=== PATIENT | male | born 1960 | race African-American/Black ===

== ENCOUNTER 2017-12-11 12:56 | Inpatient (IN) | payer OTHER ==
[2017-12-11 13:55] VITALS: BMI 23.4
--- NOTE | 2017-12-11 16:16 | HP ---
COWS - Scale Resting Pulse: 0= [place] 80 or Below Sweatin= Chills/Flushing Restless Observation: 1= Difficult to Sit Still Pupil Size: 1= Pupils >than Normal Bone or Joint Aches: 2= Severe Diffuse Aches Runny Nose/ Eye Tearin= Runny Nose/Eyes GI Upset > 30mins: 1= Stomach Cramp Tremor Observation: 1= Tremor [place], Not Seen Yawning Observation: 1= 1-2x During Session Anxiety or Irritability: 1=Feels Anxious/Irritable Goose Flesh Skin: 3=Piloerection COWS Score: 14 Admission ROS S - [facility] Chief Complaint: WITHDRAWAL SYMPTOMS Allergies/Adverse Reactions: Allergies Allergy/AdvReac Type Severity Reaction Status Date / Time No Known Allergies Allergy Verified 12/11/17 15:10 History of Present Illness: 57 Y.O. MAN WITH A HISTORY OF OPIOID DEPENDENCE IS HERE FOR HIS FIRST ADMISSION TO DETOX. Exam Limitations: No Limitations - Ebola screening Have you traveled outside of the country in the last 21 days: No Have you had contact with anyone from an Ebola affected area: No Have you been sick,other than usual withdrawal symptoms: No Do you have a fever: No - Review of Systems Constitutional: Chills, Loss of Appetite, Unintentional Wgt. Loss EENT: reports: Tearing Respiratory: reports: Cough Cardiac: reports: No Symptoms Reported GI: reports: Abdominal cramping : reports: No Symptoms Reported Musculoskeletal: reports: Back Pain Integumentary: reports: No Symptoms Reported Neuro: reports: No Symptoms reported Endocrine: reports: No Symptoms Reported Hematology: reports: No Symptoms Reported Psychiatric: reports: Depressed Other Systems: Reviewed and Negative Patient History - Patient Medical History Hx Anemia: No (Reportedly) Hx Asthma: No Hx Chronic Obstructive Pulmonary Disease (COPD): No (Reportedly) Hx Cancer: No (Reportedly) Hx Cardiac Disorders: No Hx Congestive Heart Failure: No (Reportedly) Hx Hypertension: No Hx Hypercholesterolemia: Yes (Admits high triglycerides but refuse any medication, handles with diet) Hx Pacemaker: No (Reportedly) HX Cerebrovascular Accident: No (Reportedly) Hx Seizures: No Hx Dementia: No (Reportedly) Hx Diabetes: No Hx Gastrointestinal Disorders: No Hx Liver Disease: No (Reportedly) Hx Genitourinary Disorders: No (Reportedly) Hx Sexually Transmitted Disorders: No Hx Renal Disease (ESRD): No Hx Thyroid Disease: No (Reportedly) Hx Human Immunodeficiency Virus (HIV): Yes (Reportedly) Hx Hepatitis C: No (Reportedly) Hx Depression: Yes Hx Suicide Attempt: No Hx Bipolar Disorder: No Hx Schizophrenia: No - Patient Surgical History Past Surgical History: No Hx Neurologic Surgery: No (Reportedly) Hx Cataract Extraction: No (Reportedly) Hx Cardiac Surgery: No (Reportedly) Hx Lung Surgery: No (Reportedly) Hx Breast Surgery: No (Reportedly) Hx Breast Biopsy: No (Reportedly) Hx Abdominal Surgery: No (Reportedly) Hx Appendectomy: No (Reportedly) Hx Cholecystectomy: No Hx Genitourinary Surgery: No (Reportedly) Hx Section: No (N/A) Hx Orthopedic Surgery: No (Reportedly) Hx Hysterectomy: No (N/A) Anesthesia Reaction: No (N/A) - PPD History Previous Implant?: Yes Documented Results: Positive w/o proof PPD to be Administered?: No - Reproductive History Patient is a Female of Child Bearing Age (11 -55 yrs old): No - Smoking Cessation Smoking history: Current every day smoker Have you smoked in the past 12 months: Yes Aproximately how many cigarettes per day: 10 Cigars Per Day: 0 Hx Chewing Tobacco Use: No Initiated information on smoking cessation: Yes 'Breaking Loose' booklet given: 12/11/17 - Substance & Tx. History Hx Alcohol Use: No Hx Substance Use: Yes Substance Use Type: Cocaine, Heroin Hx Substance Use Treatment: No - Substances Abused Heroin Route: Injection Frequency: Daily Amount used: 3 BAGS Age of first use: 15 Date of Last Use: 12/11/17 Crack Route: Smoking Frequency: Daily Amount used: 3 BAGS Age of first use: 15 Date of Last Use: 12/11/17 Family Disease History - Family Disease History Family Disease History: Diabetes: Sister Admission Physical Exam S - Vital Signs Vital Signs: Vital Signs - 24 hr 12/11/17 13:53 Temperature 96.9 F L Pulse Rate 79 Respiratory 18 Rate Blood Pressure 149/56 - Physical General Appearance: Yes: Irritable, Anxious HEENTM: Yes: Hearing grossly Normal, Normocephalic Respiratory: Yes: Chest Non-Tender, Lungs Clear, Normal Breath Sounds Neck: Yes: No masses,lesions,Nodules, Trachea in good position Breast: Yes: Breast Exam Deferred Cardiology: Yes: Regular Rhythm, Regular Rate Abdominal: Yes: Normal Bowel Sounds, Non Tender, Flat Genitourinary: Yes: Other (HESISTANCY) Back: Yes: Normal Inspection Musculoskeletal: Yes: Back pain Extremities: Yes: Normal Inspection, Normal Range of Motion 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 Pt states he will do immunization, EKC, CXR on next visit. Refuse at [facility] time Cleared for Admission [facility] - Detox or Rehab [facility] Level of Care: Medically Managed Detox Regimen/Protocol: Methadone [facility] Breath Alcohol Content Breath Alcohol Content: 0 Urine Drug Screen - Results Drug Screen Negative: No Urine Drug Screen Results: YANA-Cocaine, OPI-Opiates
[2017-12-11] MEDS ORDERED: guaiFENesin/D-METHORPHAN HB 10 ML UNIT-DOSE CUPS PO PRN (16:20)
[2017-12-11] MEDS ORDERED: ACETAMINOPHEN 325 MG TABLET (FP) PO PRN (16:20)
[2017-12-11] MEDS ORDERED: MAGNESIUM HYDROX 2400MG/30ML ORAL SUSPENSION 30 ML CUP PO PRN (16:20)
[2017-12-11] MEDS ORDERED: IBUPROFEN 400 MG TABLET (FP) PO PRN (16:20)
[2017-12-11] MEDS ORDERED: LOPERAMIDE HCL 2 MG CAPSULE PO PRN (16:20)
[2017-12-11] MEDS ORDERED: P-EPHED 60MG/TRIPROLIDI 2.5MG TABLET PO PRN (16:20)
[2017-12-11] MEDS ORDERED: MAGNESIUM CITRATE 300 ML BOTTLE PO PRN (17:01)
[2017-12-11] MEDS ORDERED: MENTHOL/PHENOL 1 EACH UD MM PRN (17:04)
[2017-12-11] MEDS ORDERED: METHADONE HCL 10 MG TABLET (FOR DETOX USE ONLY) PO ONE ×2 (17:15→23:00)
[2017-12-11] MEDS: diazePAM 5 MG TABLET PO PRN (17:20)
[2017-12-11 21:59] LABS: URINE APPEARANCE CLEAR; URINE BILIRUBIN NEGATIVE (<2.0 mg/dL); URINE BLOOD NEGATIVE (NEGATIVE); URINE COLOR YELLOW; URINE GLUCOSE (UA) NEGATIVE (NEGATIVE); URINE KETONE NEGATIVE (NEGATIVE); URINE LEUK ESTERASE NEGATIVE (NEGATIVE); URINE NITRITE NEGATIVE (NEGATIVE); URINE PROTEIN NEGATIVE (NEGATIVE); URINE UROBILINOGEN NEGATIVE mg/dL (0.2-1.0)
[2017-12-11] MEDS ORDERED: MELATONIN 5 MG TABLETS PO PRN (22:00)
[2017-12-11] MEDS: THIAMINE HCL 100 MG TABLET (FP) PO SCH (22:58)
[2017-12-12] MEDS ORDERED: METHADONE HCL 10 MG TABLET (FOR DETOX USE ONLY) PO ONE (10:00)
--- NOTE | 2017-12-12 10:02 | EKG ---
Test Reason : Blood Pressure : / mmHG Vent. Rate : 068 BPM Atrial Rate : 068 BPM P-R Int : 178 ms QRS Dur : 088 ms QT Int : 368 ms P-R-T Axes : 067 042 028 degrees QTc Int : 391 ms NORMAL SINUS RHYTHM VOLTAGE CRITERIA FOR LEFT VENTRICULAR HYPERTROPHY NONSPECIFIC ST ABNORMALITY NO PREVIOUS ECGS AVAILABLE Confirmed by MIKE HANSEN MD ([id number]) on 12/12/2017 10:02:10 AM Referred By: Confirmed By:MIKE HANSEN MD
[2017-12-12] MEDS: RALTEGRAVIR POTASSIUM 400 MG TAB PO SCH (10:21)
[2017-12-12] MEDS: ATAZANAVIR SO4 300 MG CAPSULE PO SCH (10:21)
[2017-12-12] MEDS: RITONAVIR 100 MG TABLET PO SCH (10:21)
[2017-12-12] MEDS: EMTRICITABINE 200MG/TENOFOVIR 300MG PO SCH (10:21)
[2017-12-12] MEDS: PRENATAL VITAMINS W/ FOLIC ACID TABLET (FP) PO SCH (10:21)
[2017-12-12] MEDS: diazePAM 5 MG TABLET PO PRN ×3 (10:21→22:10)
[2017-12-12 10:36] LABS: HEMATOCRIT 41.6 % (35.4-49); HEMOGLOBIN 13.8 GM/dL (11.7-16.9); MCH 30.6 pg (25.7-33.7); MCHC 33.3 g/dl (32.0-35.9); MEAN PLT VOLUME 10.8 fl (7.5-11.1); PLATELET COUNT 217 K/MM3 (134-434); RBC 4.52 M/mm3 (4.00-5.60); RDW 13.8 % (11.9-15.9); WHITE BLOOD COUNT 6.7 K/mm3 (4.0-10.0)
[2017-12-12 10:53] LABS: ALBUMIN 2.9 g/dl (3.4-5.0); ANION GAP 4 (8-16); BLOOD UREA NITROGEN 10 mg/dL (7-18); CALCIUM 8.7 mg/dL (8.5-10.1); CHLORIDE 104 mmol/L (98-107); CO2 30 mmol/L (21-32); GLUCOSE,RANDOM 89 mg/dL (74-106); POTASSIUM 4.4 mmol/L (3.5-5.1); SODIUM 138 mmol/L (136-145)
[2017-12-12 10:56] LABS: ALK PHOS 103 U/L (45-117); BILIRUBIN,TOTAL 0.3 mg/dL (0.2-1.0); SGOT/AST 20 U/L (15-37); SGPT/ALT 31 U/L (12-78); TOT PROT 6.6 g/dl (6.4-8.2)
--- NOTE | 2017-12-12 11:32 | PN ---
BHS COWS - Scale Resting Pulse: 0= [place] 80 or Below Sweatin= Chills/Flushing Restless Observation: 3= Extraneous Movement Pupil Size: 0= Normal to Room Light Bone or Joint Aches: 4=Acute Joint/Muscle Pain Runny Nose/ Eye Tearin= Nasal Congestion GI Upset > 30mins: 0= None Tremor Observation of Outstretched Hands: 1= Tremor [place], Not Seen Yawning Observation: 2= >3x During Session Anxiety or Irritability: 2=Irritable/Anxious Goose Flesh Skin: 0=Smooth Skin COWS Score: 14 BHS Progress Note (SOAP) Subjective: ANXIETY/GUARDED,IRRITABILITY,RESTLESSNESS, IN INTERMITTENT SLEEP Objective: 12/12/17 11:31 Vital Signs Temperature 96.4 F L 12/12/17 09:37 Pulse Rate 70 12/12/17 09:37 Respiratory Rate 18 12/12/17 09:37 Blood Pressure 146/84 12/12/17 09:37 O2 Sat by Pulse Oximetry (%) Laboratory Last Values WBC 6.7 K/mm3 (4.0-10.0) 12/12/17 07:00 RBC 4.52 M/mm3 (4.00-5.60) 12/12/17 07:00 Hgb 13.8 GM/dL (11.7-16.9) 12/12/17 07:00 Hct 41.6 % (35.4-49) 12/12/17 07:00 MCV 92.0 fl (80-96) 12/12/17 07:00 MCH 30.6 pg (25.7-33.7) 12/12/17 07:00 MCHC 33.3 g/dl (32.0-35.9) 12/12/17 07:00 RDW 13.8 % (11.9-15.9) 12/12/17 07:00 Plt Count 217 K/MM3 (134-434) 12/12/17 07:00 MPV 10.8 fl (7.5-11.1) 12/12/17 07:00 Sodium 138 mmol/L (136-145) 12/12/17 07:00 Potassium 4.4 mmol/L (3.5-5.1) 12/12/17 07:00 Chloride 104 mmol/L (98-107) 12/12/17 07:00 Carbon Dioxide 30 mmol/L (21-32) 12/12/17 07:00 Anion Gap 4 (8-16) L 12/12/17 07:00 BUN 10 mg/dL (7-18) 12/12/17 07:00 Creatinine 1.0 mg/dL (0.7-1.3) D 12/12/17 07:00 Creat Clearance w eGFR > 60 (>60) 12/12/17 07:00 Random Glucose 89 mg/dL (74-106) D 12/12/17 07:00 Calcium 8.7 mg/dL (8.5-10.1) 12/12/17 07:00 Total Bilirubin 0.3 mg/dL (0.2-1.0) D 12/12/17 07:00 AST 20 U/L (15-37) 12/12/17 07:00 ALT 31 U/L (12-78) 12/12/17 07:00 Alkaline Phosphatase 103 U/L (45-117) 12/12/17 07:00 Total Protein 6.6 g/dl (6.4-8.2) 12/12/17 07:00 Albumin 2.9 g/dl (3.4-5.0) L D 12/12/17 07:00 Urine Color Yellow 12/11/17 21:32 Urine Appearance Clear 12/11/17 21:32 Urine pH 5.0 (5.0-8.0) D 12/11/17 21:32 Ur Specific [place] 1.024 (1.001-1.035) 12/11/17 21:32 Urine Protein Negative (NEGATIVE) 12/11/17 21:32 Urine Glucose (UA) Negative (NEGATIVE) 12/11/17 21:32 Urine Ketones Negative (NEGATIVE) 12/11/17 21: Urine Blood Negative (NEGATIVE) 12/11/17 21: Urine Nitrite Negative (NEGATIVE) 12/11/17 21: Urine Bilirubin Negative (<2.0 mg/dL) 12/11/17 21: Urine Urobilinogen Negative mg/dL (0.2-1.0) 12/11/17 21:32 Ur Leukocyte Esterase Negative (NEGATIVE) 12/11/17 21:32 RPR Titer Nonreactive (NONREACTIVE) 12/12/17 07:00 Assessment: 12/12/17 11:32 WITHDRAWAL SX Plan: CONTINUE DETOX
[2017-12-12] MEDS ORDERED: FLU VACCINE QUAD 60 MCG/0.5 ML (MDV 17-18) IM ONE (12:09)
--- NOTE | 2017-12-12 15:14 | CONSULT ---
[facility] Psychiatric Consult - Data Date of interview: 12/12/17 Admission source: [facility] Identifying data: Patient is approached on [employer] at bedside for psychiatric interview.Mr Edwards refused.Discussed with nursing staff.
[2017-12-12] MEDS: THIAMINE HCL 100 MG TABLET (FP) PO SCH (22:09)
[2017-12-13] MEDS: hydrOXYzine PAMOATE 50 MG CAPSULE (FP) PO PRN (00:44)
[2017-12-13] MEDS: diazePAM 5 MG TABLET PO PRN ×5 (02:24→22:19)
[2017-12-13] MEDS ORDERED: METHADONE HCL 5 MG TABLET (FOR DETOX USE ONLY) PO ONE (10:00)
[2017-12-13] MEDS: RALTEGRAVIR POTASSIUM 400 MG TAB PO SCH (10:12)
[2017-12-13] MEDS: PRENATAL VITAMINS W/ FOLIC ACID TABLET (FP) PO SCH (10:12)
[2017-12-13] MEDS: EMTRICITABINE 200MG/TENOFOVIR 300MG PO SCH (10:12)
[2017-12-13] MEDS: ATAZANAVIR SO4 300 MG CAPSULE PO SCH (10:12)
[2017-12-13] MEDS: RITONAVIR 100 MG TABLET PO SCH (10:13)
--- NOTE | 2017-12-13 15:39 | PN ---
BHS COWS - Scale Resting Pulse: 1= [place] 81-100 Sweatin= Chills/Flushing Restless Observation: 1= Difficult to Sit Still Pupil Size: 0= Normal to Room Light Bone or Joint Aches: 0= None Runny Nose/ Eye Tearin= Nasal Congestion GI Upset > 30mins: 0= None Tremor Observation of Outstretched Hands: 2= Slight Tremor Visible Yawning Observation: 1= 1-2x During Session Anxiety or Irritability: 2=Irritable/Anxious Goose Flesh Skin: 3=Piloerection COWS Score: 12 BHS Progress Note (SOAP) Subjective: Tremors, Fatigue, Anxious, Interrupted Sleep. Objective: PATIENT A & O X 2 (UNCERTAIN ABOUT CURRENT DAY / DATE). PATIENT OBSERVED AMBULATING ON UNIT. NO ACUTE DISTRESS. 12/13/17 15:37 Vital Signs Temperature 97.1 F L 12/13/17 13:55 Pulse Rate 87 12/13/17 13:55 Respiratory Rate 18 12/13/17 13:55 Blood Pressure 126/70 12/13/17 13:55 O2 Sat by Pulse Oximetry (%) Laboratory Tests 12/11/17 12/12/17 12/12/17 21:32 07:00 07:00 WBC 6.7 RBC 4.52 Hgb 13.8 Hct 41.6 MCV 92.0 MCH 30.6 MCHC 33.3 RDW 13.8 Plt Count 217 MPV 10.8 Sodium 138 Potassium 4.4 Chloride 104 Carbon Dioxide 30 Anion Gap 4 L BUN 10 Creatinine 1.0 D Creat Clearance w eGFR > 60 Random Glucose 89 D Calcium 8.7 Total Bilirubin 0.3 D AST 20 ALT 31 Alkaline Phosphatase 103 Total Protein 6.6 Albumin 2.9 L D Urine Color Yellow Urine Appearance Clear Urine pH 5.0 D Ur Specific [place] 1.024 Urine Protein Negative Urine Glucose (UA) Negative Urine Ketones Negative Urine Blood Negative Urine Nitrite Negative Urine Bilirubin Negative Urine Urobilinogen Negative Ur Leukocyte Esterase Negative RPR Titer 12/12/17 07:00 WBC RBC Hgb Hct MCV MCH MCHC RDW Plt Count MPV Sodium Potassium Chloride Carbon Dioxide Anion Gap BUN Creatinine Creat Clearance w eGFR Random Glucose Calcium Total Bilirubin AST ALT Alkaline Phosphatase Total Protein Albumin Urine Color Urine Appearance Urine pH Ur Specific [place] Urine Protein Urine Glucose (UA) Urine Ketones Urine Blood Urine Nitrite Urine Bilirubin Urine Urobilinogen Ur Leukocyte Esterase RPR Titer Nonreactive LABS NOTED. Assessment: 12/13/17 15:38 WITHDRAWAL SYMPTOMS. Plan: CONTINUE DETOX.
[2017-12-13] MEDS: THIAMINE HCL 100 MG TABLET (FP) PO SCH (22:19)
[2017-12-14] MEDS: diazePAM 5 MG TABLET PO PRN ×4 (02:15→14:44)
[2017-12-14] MEDS ORDERED: METHADONE HCL 5 MG TABLET (FOR DETOX USE ONLY) PO ONE (10:00)
[2017-12-14] MEDS: PRENATAL VITAMINS W/ FOLIC ACID TABLET (FP) PO SCH (10:10)
[2017-12-14] MEDS: ATAZANAVIR SO4 300 MG CAPSULE PO SCH (10:10)
[2017-12-14] MEDS: RALTEGRAVIR POTASSIUM 400 MG TAB PO SCH (10:11)
[2017-12-14] MEDS: RITONAVIR 100 MG TABLET PO SCH (10:12)
[2017-12-14] MEDS: EMTRICITABINE 200MG/TENOFOVIR 300MG PO SCH (10:13)
[2017-12-14] MEDS ORDERED: cloNIDine HCL 0.1 MG TABLET PO PRN (15:59)
--- NOTE | 2017-12-14 15:59 | PN ---
BHS Progress Note (SOAP) Subjective: Patient refused to speak to staff writer Objective: 12/14/17 15:56 Last Vital Signs Temp Pulse Resp BP Pulse Ox 96.6 F L 84 18 158/81 12/14/17 14:20 12/14/17 14:20 12/14/17 14:20 12/14/17 14:20 Elevated b/p noted Laboratory Tests 12/11/17 12/12/17 12/12/17 21:32 07:00 07:00 WBC 6.7 RBC 4.52 Hgb 13.8 Hct 41.6 MCV 92.0 MCH 30.6 MCHC 33.3 RDW 13.8 Plt Count 217 MPV 10.8 Sodium 138 Potassium 4.4 Chloride 104 Carbon Dioxide 30 Anion Gap 4 L BUN 10 Creatinine 1.0 D Creat Clearance w eGFR > 60 Random Glucose 89 D Calcium 8.7 Total Bilirubin 0.3 D AST 20 ALT 31 Alkaline Phosphatase 103 Total Protein 6.6 Albumin 2.9 L D Urine Color Yellow Urine Appearance Clear Urine pH 5.0 D Ur Specific [place] 1.024 Urine Protein Negative Urine Glucose (UA) Negative Urine Ketones Negative Urine Blood Negative Urine Nitrite Negative Urine Bilirubin Negative Urine Urobilinogen Negative Ur Leukocyte Esterase Negative RPR Titer 12/12/17 07:00 WBC RBC Hgb Hct MCV MCH MCHC RDW Plt Count MPV Sodium Potassium Chloride Carbon Dioxide Anion Gap BUN Creatinine Creat Clearance w eGFR Random Glucose Calcium Total Bilirubin AST ALT Alkaline Phosphatase Total Protein Albumin Urine Color Urine Appearance Urine pH Ur Specific [place] Urine Protein Urine Glucose (UA) Urine Ketones Urine Blood Urine Nitrite Urine Bilirubin Urine Urobilinogen Ur Leukocyte Esterase RPR Titer Nonreactive Labs reviewed Assessment: 12/14/17 15:56 Withdrawal symptoms Noted with elevated b/p Plan: Continue detox Encouraged PO hydration (water) Elevated b/p: clonidine 0.1mg PO q8hr prn
[2017-12-14] MEDS: hydrOXYzine PAMOATE 50 MG CAPSULE (FP) PO PRN (18:50)
[2017-12-14] MEDS: THIAMINE HCL 100 MG TABLET (FP) PO SCH (22:38)
[2017-12-15 09:15] VITALS: BP 122/88; PULSE 92; TEMP 99.1
[2017-12-15] MEDS ORDERED: METHADONE HCL 10 MG TABLET (FOR DETOX USE ONLY) PO ONE (10:00)
[2017-12-15] MEDS: RITONAVIR 100 MG TABLET PO SCH (10:07)
[2017-12-15] MEDS: RALTEGRAVIR POTASSIUM 400 MG TAB PO SCH (10:07)
[2017-12-15] MEDS: PRENATAL VITAMINS W/ FOLIC ACID TABLET (FP) PO SCH (10:07)
[2017-12-15] MEDS: EMTRICITABINE 200MG/TENOFOVIR 300MG PO SCH (10:07)
[2017-12-15] MEDS: ATAZANAVIR SO4 300 MG CAPSULE PO SCH (10:08)
--- NOTE | 2017-12-15 10:38 | PN ---
BHS Progress Note (SOAP) Subjective: "little diarrhea" sweats shakes Objective: 12/15/17 10:37 A & O x 3 Not in acute distress In bed Vital Signs Temperature 99.1 F 12/15/17 09:14 Pulse Rate 92 H 12/15/17 09:14 Respiratory Rate 18 12/15/17 09:14 Blood Pressure 122/88 12/15/17 09:14 O2 Sat by Pulse Oximetry (%) Assessment: 12/15/17 10:38 withdrawal sx Plan: continue detox
--- NOTE | 2017-12-15 11:40 | DS ---
[facility] Detox Discharge Summary Admission Date: 12/11/17 Discharge Date: 12/15/17 - History Present History: Opioid Dependence Additional Comments: Pt insisting on leaving, he states "I am just tired and want to go" When trying to encourage him to stay to complete pt stated you are not going to be able to convince me to stay, I just need to leave" Pt A & O x 3, gait steady, not in acute distress. Pertinent Past History: HIV chronic back pain PPD Positive - Physical Exam Results Vital Signs: Vital Signs Temperature 99.1 F 12/15/17 09:14 Pulse Rate 92 H 12/15/17 09:14 Respiratory Rate 18 12/15/17 09:14 Blood Pressure 122/88 12/15/17 09:14 O2 Sat by Pulse Oximetry (%) Pertinent Admission Physical Exam Findings: withdrawal sx - Medication Discharge Medications: Ambulatory Orders Multivit-Min/Iron Fum/Folic AC [Qzcte-Fdaztjy-Apvfthpp Tablet] 1 each PO DAILY # 30 tablet 06/12/17 Vit D3/Folic Acid/B2/B6/B12 [Folgard Tablet] 1 each PO DAILY #30 tablet Atazanavir [Reyataz -] 300 mg PO DAILY #30 capsule 07/23/17 Emtricitabine/Tenofovir (Tdf) [Truvada 200 mg-300 mg Tablet] 1 each PO DAILY # 30 tablet 07/23/17 Raltegravir [Isentress -] 400 mg PO DAILY #30 tab 07/23/17 - Diagnosis (1) Opioid dependence with intoxication, uncomplicated Current Visit: Yes Status: Acute (2) Cocaine dependence, uncomplicated Current Visit: Yes Status: Chronic (3) Nicotine dependence Current Visit: Yes Status: Chronic Qualifiers: Nicotine product type: cigarettes Substance use status: in withdrawal Qualified Code(s): F17.213 - Nicotine dependence, cigarettes, with withdrawal (4) HIV (human immunodeficiency virus infection) Current Visit: Yes Status: Chronic (5) History of chronic back pain Current Visit: Yes Status: Chronic - AMA Did Patient Leave Against Medical Advice: Yes
[2017-12-16] MEDS ORDERED: METHADONE HCL 5 MG TABLET (FOR DETOX USE ONLY) PO ONE (06:00)
== END 2017-12-15 10:47 | disposition left against medical advice (07) | DRG 770 ==
LOC: YASAS 12:56 → Y3N 15:24
PROVIDERS: ADMIT Internal Medicine; ATTEND Internal Medicine
PROC: HZ2ZZZZ Detoxification Services for Substance Abuse Treatment (ICD-10-PCS; principal; 2017-12-11)
DX: F11.23 Opioid dependence with withdrawal (principal); F14.20 Cocaine dependence, uncomplicated; F17.210 Nicotine dependence, cigarettes, uncomplicated; E78.5 Hyperlipidemia, unspecified; M54.5 Low back pain; G89.29 Other chronic pain; R76.11 Nonspecific reaction to tuberculin skin test without active tuberculosis; Z21 Asymptomatic human immunodeficiency virus [HIV] infection status
CPT/HCPCS: 36415; 71046-TC-FY; 80053; 81003; 85027; 86593; 93005; 93010

== ENCOUNTER 2018-11-04 13:39 | Inpatient (IN) | payer OTHER ==
[2018-11-04 15:06] VITALS: BMI 23.4
--- NOTE | 2018-11-04 18:10 | HP ---
COWS - Scale Resting Pulse: 1= [place] 81-100 Sweatin= Chills/Flushing Restless Observation: 1= Difficult to Sit Still Pupil Size: 0= Normal to Room Light Bone or Joint Aches: 1= Mild Discomfort Runny Nose/ Eye Tearin= Runny Nose/Eyes GI Upset > 30mins: 2= Nausea/Diarrhea Tremor Observation: 1= Tremor [place], Not Seen Yawning Observation: 2= >3x During Session Anxiety or Irritability: 2=Irritable/Anxious Goose Flesh Skin: 0=Smooth Skin COWS Score: 13 CIWA Score - Admission Criteria [facility] Guidelines: Admission for Medically Managed Detox: Requires at least one of the followin. CIWA greater than 12 2. Seizures within the past 24 hours 3. Delirium tremens within the past 24 hours 4. Hallucinations within the past 24 hours 5. Acute intervention needed for co occurring medical disorder 6. Acute intervention needed for co occurring psychiatric disorder 7. Severe withdrawal that cannot be handled at a lower level of care (continued vomiting, continued diarrhea, abnormal vital signs) requiring intravenous medication and/or fluids 8. Admission ROS [facility] - [facility] Chief Complaint: " I need help" Allergies/Adverse Reactions: Allergies Allergy/AdvReac Type Severity Reaction Status Date / Time No Known Allergies Allergy Verified 11/04/18 18:21 History of Present Illness: 58 yo male, currently homeless, with heroin (IV, crack and nicotine dependence is here seeking detox. Last detox [facility] November 2017, reports relapse soon after. PMHX : HIV, HDL. Psych: Depression. Denies suicidal / homicidal ideation. Denies hx of suicide attempt. Denies hx seizures. Reports hx of overdose x 1 two months ago. Exam Limitations: No Limitations - Ebola screening Have you traveled outside of the country in the last 21 days: No Have you had contact with anyone from an Ebola affected area: No Have you been sick,other than usual withdrawal symptoms: No Do you have a fever: No - Review of Systems Constitutional: Chills, Loss of Appetite, Changes in sleep, Unintentional Wgt. Loss (10 lbs) EENT: reports: Nose Congestion Respiratory: reports: No Symptoms reported Cardiac: reports: No Symptoms Reported GI: reports: No Symptoms Reported, Nausea, Poor Appetite, Poor Fluid Intake : reports: No Symptoms Reported Musculoskeletal: reports: Joint Pain Integumentary: reports: No Symptoms Reported Neuro: reports: Headache Endocrine: reports: No Symptoms Reported Hematology: reports: See HPI Psychiatric: reports: Orientated x3, Depressed Other Systems: Reviewed and Negative Patient History - Patient Medical History Hx Anemia: No (Reportedly) Hx Asthma: No Hx Chronic Obstructive Pulmonary Disease (COPD): No (Reportedly) Hx Cancer: No (Reportedly) Hx Cardiac Disorders: No Hx Congestive Heart Failure: No (Reportedly) Hx Hypertension: No Hx Hypercholesterolemia: Yes (Admits high triglycerides but refuse any medication, handles with diet) Hx Pacemaker: No (Reportedly) HX Cerebrovascular Accident: No (Reportedly) Hx Seizures: No Hx Dementia: No (Reportedly) Hx Diabetes: No Hx Gastrointestinal Disorders: No Hx Liver Disease: No (Reportedly) Hx Genitourinary Disorders: No (Reportedly) Hx Sexually Transmitted Disorders: No Hx Renal Disease (ESRD): No Hx Thyroid Disease: No (Reportedly) Hx Human Immunodeficiency Virus (HIV): Yes (Reportedly) Hx Hepatitis C: No (Reportedly) Hx Depression: Yes Hx Suicide Attempt: No Hx Bipolar Disorder: No Hx Schizophrenia: No - Patient Surgical History Past Surgical History: No Hx Neurologic Surgery: No (Reportedly) Hx Cataract Extraction: No (Reportedly) Hx Cardiac Surgery: No (Reportedly) Hx Lung Surgery: No (Reportedly) Hx Breast Surgery: No (Reportedly) Hx Breast Biopsy: No (Reportedly) Hx Abdominal Surgery: No (Reportedly) Hx Appendectomy: No (Reportedly) Hx Cholecystectomy: No Hx Genitourinary Surgery: No (Reportedly) Hx Section: No (N/A) Hx Orthopedic Surgery: No (Reportedly) Hx Hysterectomy: No (N/A) Anesthesia Reaction: No (N/A) - PPD History Previous Implant?: No (NEG Chest X-ray 11/2017) PPD to be Administered?: No - Smoking Cessation Smoking history: Current every day smoker Have you smoked in the past 12 months: Yes Aproximately how many cigarettes per day: 10 Cigars Per Day: 0 Hx Chewing Tobacco Use: No Initiated information on smoking cessation: Yes 'Breaking Loose' booklet given: 11/04/18 - Substance & Tx. History Hx Alcohol Use: Yes Hx Substance Use: Yes Substance Use Type: Alcohol, Cocaine, Heroin Hx Substance Use Treatment: Yes (Last detox [facility] November 2017) - Substances Abused heroin Route: Injection Frequency: Daily Amount used: 7 -8 Age of first use: 17 Date of Last Use: 11/04/18 Crack Route: Smoking Frequency: Daily Amount used: 7 -8 Age of first use: 20 Date of Last Use: 11/04/18 Family Disease History - Family Disease History Family Disease History: Diabetes: Sister Admission Physical Exam [facility] - Vital Signs Vital Signs: Vital Signs - 24 hr 11/04/18 15:04 Temperature 96.2 F L Pulse Rate 87 Respiratory 18 Rate Blood Pressure 110/61 - Physical General Appearance: Yes: Disheveled, Thin, Anxious HEENTM: Yes: EOMI, Hearing grossly Normal, Normal ENT Inspection, Normocephalic , Normal Voice, LUIS ANGEL, Pharynx Normal, Tm's normal Respiratory: Yes: Chest Non-Tender, Lungs Clear, Normal Breath Sounds, No Respiratory Distress, No Accessory Muscle Use Neck: Yes: Within Normal Limits Breast: Yes: Breast Exam Deferred, Surgical Scar Cardiology: Yes: Regular Rhythm Abdominal: Yes: Normal Bowel Sounds, Non Tender, Flat, Soft Genitourinary: Yes: Within Normal Limits Back: Yes: Normal Inspection Musculoskeletal: Yes: full range of Motion, Gait Steady, Pelvis Stable, Back pain Extremities: Yes: Normal Capillary Refill, Normal Inspection, Normal Range of Motion, Non-Tender Neurological: Yes: consulting senior practice director II-XII NML intact, Fully Oriented, Alert, Motor Strength 5/5 Integumentary: Yes: Normal Color, Warm, Moist, Track Huang (bilateral forearms, no infection present) - Diagnostic (1) Opioid dependence with withdrawal Current Visit: Yes Status: Acute (2) Cocaine dependence, uncomplicated Current Visit: Yes Status: Chronic (3) HIV (human immunodeficiency virus infection) Current Visit: Yes Status: Chronic (4) Nicotine dependence Current Visit: Yes Status: Chronic Qualifiers: Nicotine product type: cigarettes Substance use status: in withdrawal Qualified Code(s): F17.213 - Nicotine dependence, cigarettes, with withdrawal (5) PPD positive Current Visit: Yes Status: Chronic (6) IVDU (intravenous drug user) Current Visit: Yes Status: Acute Cleared for Admission [facility] - Detox or Rehab [facility] Level of Care: Medically Managed Detox Regimen/Protocol: Methadone [facility] Breath Alcohol Content Breath Alcohol Content: 0 Urine Drug Screen - Results Drug Screen Negative: No Urine Drug Screen Results: YANA-Cocaine, OPI-Opiates, FEN-Fentanyl Inpatient Rehab Admission - Rehab Decision to Admit Inpatient rehab admission?: No
[2018-11-04] MEDS ORDERED: ACETAMINOPHEN 325 MG TABLET (FP) PO PRN ×2 (18:12)
[2018-11-04] MEDS ORDERED: BISMUTH SUBSALICYLATE 524 MG/30 ML UD PO PRN (18:12)
[2018-11-04] MEDS ORDERED: MAG HYDROX/AL HYDROX/SIMETH 30 ML UNIT-DOSE CUP PO PRN (18:12)
[2018-11-04] MEDS ORDERED: MENTHOL/PHENOL 1 EACH UD MM PRN (18:12)
[2018-11-04] MEDS ORDERED: IBUPROFEN 400 MG TABLET (FP) PO PRN (18:12)
[2018-11-04] MEDS ORDERED: MAGNESIUM CITRATE 300 ML BOTTLE PO PRN (18:12)
[2018-11-04] MEDS ORDERED: NICOTINE POLACRILEX 2 MG GUM BUC PRN (18:12)
[2018-11-04] MEDS ORDERED: MAGNESIUM HYDROX 2400MG/30ML ORAL SUSPENSION 30 ML CUP PO PRN (18:12)
[2018-11-04] MEDS: THIAMINE HCL 100 MG TABLET (FP) PO SCH (22:01)
[2018-11-04] MEDS ORDERED: METHADONE HCL 10 MG TABLET (FOR DETOX USE ONLY) PO ONE (23:00)
[2018-11-04 23:46] LABS: URINE APPEARANCE CLEAR; URINE BILIRUBIN NEGATIVE (<2.0 mg/dL); URINE COLOR AMBER; URINE GLUCOSE (UA) NEGATIVE (NEGATIVE); URINE KETONE NEGATIVE (NEGATIVE); URINE LEUK ESTERASE NEGATIVE (NEGATIVE); URINE NITRITE NEGATIVE (NEGATIVE); URINE PROTEIN 1+ (NEGATIVE)
[2018-11-05 00:14] LABS: EPI CELLS RARE /HPF (FEW); URINE MUCUS RARE
[2018-11-05] MEDS: PRENATAL VITAMINS W/ FOLIC ACID TABLET (FP) PO SCH (09:37)
[2018-11-05] MEDS: NICOTINE 14 MG/24 HOURS TOPICAL PATCH TD SCH (09:38)
[2018-11-05] MEDS ORDERED: METHADONE HCL 5 MG TABLET (FOR DETOX USE ONLY) PO ONE (10:00)
[2018-11-05 10:15] LABS: MCH 29.8 pg (25.7-33.7); MCHC 33.2 g/dl (32.0-35.9); MEAN PLT VOLUME 10.3 fl (7.5-11.1); PLATELET COUNT 193 K/MM3 (134-434); RDW 14.7 % (11.9-15.9); WHITE BLOOD COUNT 4.7 K/mm3 (4.0-10.0)
[2018-11-05 10:32] LABS: ALBUMIN 2.8 g/dl (3.4-5.0); ALK PHOS 108 U/L (45-117); ANION GAP 4 MMOL/L (8-16); BILIRUBIN,TOTAL 0.2 mg/dL (0.2-1); BLOOD UREA NITROGEN 14 mg/dL (7-18); CALCIUM 8.3 mg/dL (8.5-10.1); CHLORIDE 108 mmol/L (98-107); CO2 29 mmol/L (21-32); CREATININE 1.2 mg/dL (0.55-1.3); GLUCOSE,RANDOM 88 mg/dL (74-106); POTASSIUM 4.1 mmol/L (3.5-5.1); SGOT/AST 27 U/L (15-37); SGPT/ALT 46 U/L (13-61); SODIUM 140 mmol/L (136-145); TOT PROT 6.7 g/dl (6.4-8.2)
--- NOTE | 2018-11-05 10:55 | EKG ---
Test Reason : Blood Pressure : / mmHG Vent. Rate : 076 BPM Atrial Rate : 076 BPM P-R Int : 158 ms QRS Dur : 082 ms QT Int : 364 ms P-R-T Axes : 056 041 048 degrees QTc Int : 409 ms NORMAL SINUS RHYTHM NORMAL ECG WHEN COMPARED WITH ECG OF 11-DEC-2017 17:30, NO SIGNIFICANT CHANGE WAS FOUND Confirmed by CHITRA WARD MD ([id number]) on 11/05/2018 10:55:08 AM Referred By: Confirmed By:CHITRA WARD MD
--- NOTE | 2018-11-05 15:37 | PN ---
BHS COWS - Scale Resting Pulse: 1= [place] 81-100 Sweatin= Chills/Flushing Restless Observation: 1= Difficult to Sit Still Pupil Size: 0= Normal to Room Light Bone or Joint Aches: 2= Severe Diffuse Aches Runny Nose/ Eye Tearin= Runny Nose/Eyes GI Upset > 30mins: 0= None Tremor Observation of Outstretched Hands: 2= Slight Tremor Visible Yawning Observation: 1= 1-2x During Session Anxiety or Irritability: 2=Irritable/Anxious Goose Flesh Skin: 0=Smooth Skin COWS Score: 12 BHS Progress Note (SOAP) Subjective: Fatigue, Anxious, Tremors, Nausea, Nasal Congestion. Objective: PATIENT A & O X 3, OBSERVED AMBULATING ON UNIT. IN NO ACUTE DISTRESS. 11/05/18 15:38 Vital Signs Temperature 98.6 F 11/05/18 14:22 Pulse Rate 80 11/05/18 14:22 Respiratory Rate 18 11/05/18 14:22 Blood Pressure 153/85 11/05/18 14:22 O2 Sat by Pulse Oximetry (%) Laboratory Tests 11/04/18 11/05/18 11/05/18 23:17 07:00 07:00 WBC 4.7 RBC 4.00 Hgb 12.0 Hct 36.0 MCV 90.0 MCH 29.8 MCHC 33.2 RDW 14.7 Plt Count 193 MPV 10.3 Sodium 140 Potassium 4.1 Chloride 108 H Carbon Dioxide 29 Anion Gap 4 L BUN 14 Creatinine 1.2 Creat Clearance w eGFR > 60 Random Glucose 88 Calcium 8.3 L Total Bilirubin 0.2 AST 27 ALT 46 Alkaline Phosphatase 108 Total Protein 6.7 Albumin 2.8 L Urine Color Maria L Urine Appearance Clear Urine pH 5.0 Ur Specific [place] 1.025 Urine Protein 1+ H Urine Glucose (UA) Negative Urine Ketones Negative Urine Blood Negative Urine Nitrite Negative Urine Bilirubin Negative Urine Urobilinogen 2.0 Ur Leukocyte Esterase Negative Urine WBC (Auto) 2 Urine RBC (Auto) <1 Ur Epithelial Cells Rare Urine Mucus Rare RPR Titer 11/05/18 07:00 WBC RBC Hgb Hct MCV MCH MCHC RDW Plt Count MPV Sodium Potassium Chloride Carbon Dioxide Anion Gap BUN Creatinine Creat Clearance w eGFR Random Glucose Calcium Total Bilirubin AST ALT Alkaline Phosphatase Total Protein Albumin Urine Color Urine Appearance Urine pH Ur Specific [place] Urine Protein Urine Glucose (UA) Urine Ketones Urine Blood Urine Nitrite Urine Bilirubin Urine Urobilinogen Ur Leukocyte Esterase Urine WBC (Auto) Urine RBC (Auto) Ur Epithelial Cells Urine Mucus RPR Titer Nonreactive LABS NOTED. Assessment: 11/05/18 15:41 WITHDRAWAL SYMPTOMS. Plan: CONTINUE DETOX. PATIENT REPORTS HISTORY OF TAKING MEDICATION PRESCRIBED FOR TREATMENT OF H.I.V. PATIENT REPORTS THAT HE LAST TOOK HIS H.I.V. MEDICATION 2 DAYS AGO, BUT THAT DID NOT BRING HIS H.I.V. MEDICATION WITH HIM AT TIME OF ADMISSION BECAUSE HE WAS EVICTED FROM HIS APARTMENT AND THAT THE MEDICATION WAS LOST IN THE PROCESS. NAMES OF H.I.V. MEDICATIONS CONFIRMED BY ARTEM THOMPSON AT [facility] ([place], [place]). ACCORDING TO PHARMACIST JAY, PATIENT LAST FILLED BOTH MEDICATIONS ON 10/20/2018. AFTER DISCUSSION WITH ARTEM GILL AT [facility], BOTH MEDICATIONS TO BE ORDERED FOR THIS DETOX ADMISSION.
[2018-11-05] MEDS: cloNIDine HCL 0.1 MG TABLET PO PRN (17:26)
[2018-11-05] MEDS: hydrOXYzine PAMOATE 25 MG CAPSULE (FP) PO PRN (17:26)
[2018-11-05] MEDS: METHOCARBAMOL 500 MG TABLET PO PRN (17:27)
[2018-11-05] MEDS: ELVITEG/COB/EMTRI/TENOF (GENVOYA) TABLET (NF) PO SCH (17:28)
[2018-11-05] MEDS: DARUNAVIR ETHANOLATE 800 MG TAB PO SCH (17:28)
[2018-11-05] MEDS: THIAMINE HCL 100 MG TABLET (FP) PO SCH (22:02)
[2018-11-05] MEDS: MELATONIN 5 MG TABLETS PO PRN (22:02)
[2018-11-06] MEDS: hydrOXYzine PAMOATE 25 MG CAPSULE (FP) PO PRN ×2 (04:33→22:28)
[2018-11-06] MEDS: cloNIDine HCL 0.1 MG TABLET PO PRN (06:40)
[2018-11-06] MEDS: METHOCARBAMOL 500 MG TABLET PO PRN (06:40)
[2018-11-06] MEDS: PRENATAL VITAMINS W/ FOLIC ACID TABLET (FP) PO SCH (09:31)
[2018-11-06] MEDS: ELVITEG/COB/EMTRI/TENOF (GENVOYA) TABLET (NF) PO SCH (09:31)
[2018-11-06] MEDS: DARUNAVIR ETHANOLATE 800 MG TAB PO SCH (09:31)
[2018-11-06] MEDS: NICOTINE 14 MG/24 HOURS TOPICAL PATCH TD SCH (09:31)
[2018-11-06] MEDS ORDERED: METHADONE HCL 10 MG TABLET (FOR DETOX USE ONLY) PO ONE (10:00)
--- NOTE | 2018-11-06 15:06 | PN ---
BHS COWS - Scale Resting Pulse: 1= [place] 81-100 Sweatin= Chills/Flushing Restless Observation: 0= Sits Still Pupil Size: 0= Normal to Room Light Bone or Joint Aches: 0= None Runny Nose/ Eye Tearin= Runny Nose/Eyes GI Upset > 30mins: 0= None Tremor Observation of Outstretched Hands: 0= None Yawning Observation: 1= 1-2x During Session Anxiety or Irritability: 2=Irritable/Anxious Goose Flesh Skin: 3=Piloerection COWS Score: 10 BHS Progress Note (SOAP) Subjective: Interrupted Sleep, Runny Nose, Diarrhea, Fatigue. Objective: PATIENT A & O X 3, OBSERVED AMBULATING ON UNIT. IN NO ACUTE DISTRESS. 11/06/18 15:04 Vital Signs Temperature 98.6 F 11/06/18 13:45 Pulse Rate 72 11/06/18 13:45 Respiratory Rate 17 11/06/18 13:45 Blood Pressure 144/89 11/06/18 13:45 O2 Sat by Pulse Oximetry (%) Laboratory Tests 11/04/18 11/05/18 11/05/18 23:17 07:00 07:00 WBC 4.7 RBC 4.00 Hgb 12.0 Hct 36.0 MCV 90.0 MCH 29.8 MCHC 33.2 RDW 14.7 Plt Count 193 MPV 10.3 Sodium 140 Potassium 4.1 Chloride 108 H Carbon Dioxide 29 Anion Gap 4 L BUN 14 Creatinine 1.2 Creat Clearance w eGFR > 60 Random Glucose 88 Calcium 8.3 L Total Bilirubin 0.2 AST 27 ALT 46 Alkaline Phosphatase 108 Total Protein 6.7 Albumin 2.8 L Urine Color Maria L Urine Appearance Clear Urine pH 5.0 Ur Specific [place] 1.025 Urine Protein 1+ H Urine Glucose (UA) Negative Urine Ketones Negative Urine Blood Negative Urine Nitrite Negative Urine Bilirubin Negative Urine Urobilinogen 2.0 Ur Leukocyte Esterase Negative Urine WBC (Auto) 2 Urine RBC (Auto) <1 Ur Epithelial Cells Rare Urine Mucus Rare RPR Titer 11/05/18 07:00 WBC RBC Hgb Hct MCV MCH MCHC RDW Plt Count MPV Sodium Potassium Chloride Carbon Dioxide Anion Gap BUN Creatinine Creat Clearance w eGFR Random Glucose Calcium Total Bilirubin AST ALT Alkaline Phosphatase Total Protein Albumin Urine Color Urine Appearance Urine pH Ur Specific [place] Urine Protein Urine Glucose (UA) Urine Ketones Urine Blood Urine Nitrite Urine Bilirubin Urine Urobilinogen Ur Leukocyte Esterase Urine WBC (Auto) Urine RBC (Auto) Ur Epithelial Cells Urine Mucus RPR Titer Nonreactive LABS NOTED. Assessment: 11/06/18 15:04 WITHDRAWAL SYMPTOMS. ELEVATED BP. 11/06/18 15:06 Plan: CONTINUE DETOX. INCREASE DAILY PO FLUID INTAKE. PRN PEPTO BISMOL PO FOR DIARRHEA. CLONIDINE, 0.1 MG PO FOR WITHDRAWAL SYMPTOMS AND FOR ELEVATED BP.
[2018-11-06] MEDS ORDERED: cloNIDine HCL 0.1 MG TABLET PO ONE (15:45)
[2018-11-06] MEDS: THIAMINE HCL 100 MG TABLET (FP) PO SCH (22:27)
[2018-11-06] MEDS: MELATONIN 5 MG TABLETS PO PRN (22:27)
[2018-11-07] MEDS ORDERED: METHADONE HCL 5 MG TABLET (FOR DETOX USE ONLY) PO ONE (06:00)
[2018-11-07] MEDS ORDERED: METHADONE HCL 10 MG TABLET (FOR DETOX USE ONLY) PO ONE (10:30)
[2018-11-07] MEDS: NICOTINE 14 MG/24 HOURS TOPICAL PATCH TD SCH (11:25)
[2018-11-07] MEDS: PRENATAL VITAMINS W/ FOLIC ACID TABLET (FP) PO SCH (11:25)
[2018-11-07] MEDS: DARUNAVIR ETHANOLATE 800 MG TAB PO SCH (11:26)
[2018-11-07] MEDS: cloNIDine HCL 0.1 MG TABLET PO SCH ×2 (11:27→22:13)
[2018-11-07] MEDS: ELVITEG/COB/EMTRI/TENOF (GENVOYA) TABLET (NF) PO SCH (11:30)
--- NOTE | 2018-11-07 15:42 | PN ---
BHS Progress Note (SOAP) Subjective: Anxious, Fatigue, Nasal Congestion, Poor Appetite. Objective: PATIENT A & O X 3, OBSERVED AMBULATING ON UNIT. IN NO ACUTE DISTRESS. 11/07/18 15:40 Vital Signs Temperature 98.2 F 11/07/18 14:02 Pulse Rate 75 11/07/18 14:02 Respiratory Rate 18 11/07/18 14:02 Blood Pressure 143/84 11/07/18 14:02 O2 Sat by Pulse Oximetry (%) Laboratory Tests 11/04/18 11/05/18 11/05/18 23:17 07:00 07:00 WBC 4.7 RBC 4.00 Hgb 12.0 Hct 36.0 MCV 90.0 MCH 29.8 MCHC 33.2 RDW 14.7 Plt Count 193 MPV 10.3 Sodium 140 Potassium 4.1 Chloride 108 H Carbon Dioxide 29 Anion Gap 4 L BUN 14 Creatinine 1.2 Creat Clearance w eGFR > 60 Random Glucose 88 Calcium 8.3 L Total Bilirubin 0.2 AST 27 ALT 46 Alkaline Phosphatase 108 Total Protein 6.7 Albumin 2.8 L Urine Color Maria L Urine Appearance Clear Urine pH 5.0 Ur Specific [place] 1.025 Urine Protein 1+ H Urine Glucose (UA) Negative Urine Ketones Negative Urine Blood Negative Urine Nitrite Negative Urine Bilirubin Negative Urine Urobilinogen 2.0 Ur Leukocyte Esterase Negative Urine WBC (Auto) 2 Urine RBC (Auto) <1 Ur Epithelial Cells Rare Urine Mucus Rare RPR Titer 11/05/18 07:00 WBC RBC Hgb Hct MCV MCH MCHC RDW Plt Count MPV Sodium Potassium Chloride Carbon Dioxide Anion Gap BUN Creatinine Creat Clearance w eGFR Random Glucose Calcium Total Bilirubin AST ALT Alkaline Phosphatase Total Protein Albumin Urine Color Urine Appearance Urine pH Ur Specific [place] Urine Protein Urine Glucose (UA) Urine Ketones Urine Blood Urine Nitrite Urine Bilirubin Urine Urobilinogen Ur Leukocyte Esterase Urine WBC (Auto) Urine RBC (Auto) Ur Epithelial Cells Urine Mucus RPR Titer Nonreactive LABS NOTED. Assessment: 11/07/18 15:41 WITHDRAWAL SYMPTOMS. Plan: CONTINUE DETOX. ENSURE BID FOR CALORIC SUPPLEMENTATION. PATIENT INITIALLY SCHEDULED FOR D/C FROM DETOX UNIT TODAY, 11/07/2018. HOWEVER, DUE TO PRESENCE AND SEVERITY OF LINGERING WITHDRAWAL SYMPTOMS, PATIENT PERMITTED TO REMAIN ON DETOX UNIT UNTIL TOMORROW, 11/08/2018.
[2018-11-07] MEDS: THIAMINE HCL 100 MG TABLET (FP) PO SCH (22:12)
[2018-11-07] MEDS: MELATONIN 5 MG TABLETS PO PRN (22:13)
[2018-11-08] MEDS ORDERED: METHADONE HCL 5 MG TABLET (FOR DETOX USE ONLY) PO ONE (06:00)
[2018-11-08 09:54] VITALS: BP 139/79; PULSE 70; TEMP 97.5
[2018-11-08] MEDS: ELVITEG/COB/EMTRI/TENOF (GENVOYA) TABLET (NF) PO SCH (10:12)
[2018-11-08] MEDS: NICOTINE 14 MG/24 HOURS TOPICAL PATCH TD SCH (10:12)
[2018-11-08] MEDS: DARUNAVIR ETHANOLATE 800 MG TAB PO SCH (10:12)
[2018-11-08] MEDS: PRENATAL VITAMINS W/ FOLIC ACID TABLET (FP) PO SCH (10:12)
[2018-11-08] MEDS: cloNIDine HCL 0.1 MG TABLET PO SCH (10:12)
--- NOTE | 2018-11-08 15:42 | DS ---
[facility] Detox Discharge Summary Admission Date: 11/04/18 Discharge Date: 11/08/18 - History Present History: Opioid Dependence Additional Comments: 58 years old male admitted on 11/04/18 for opiate withdrawal sx completed detox regimen tolerate well aftercare revelatiojn - Physical Exam Results Vital Signs: Vital Signs Temperature 97.5 F L 11/08/18 08:35 Pulse Rate 70 11/08/18 08:35 Respiratory Rate 18 11/08/18 08:35 Blood Pressure 139/79 11/08/18 08:35 O2 Sat by Pulse Oximetry (%) Pertinent Admission Physical Exam Findings: opiate withdrawal sx Laboratory Last Values WBC 4.7 K/mm3 (4.0-10.0) 11/05/18 07:00 RBC 4.00 M/mm3 (4.00-5.60) 11/05/18 07:00 Hgb 12.0 GM/dL (11.7-16.9) 11/05/18 07:00 Hct 36.0 % (35.4-49) 11/05/18 07:00 MCV 90.0 fl (80-96) 11/05/18 07:00 MCH 29.8 pg (25.7-33.7) 11/05/18 07:00 MCHC 33.2 g/dl (32.0-35.9) 11/05/18 07:00 RDW 14.7 % (11.9-15.9) 11/05/18 07:00 Plt Count 193 K/MM3 (134-434) 11/05/18 07:00 MPV 10.3 fl (7.5-11.1) 11/05/18 07:00 Sodium 140 mmol/L (136-145) 11/05/18 07:00 Potassium 4.1 mmol/L (3.5-5.1) 11/05/18 07:00 Chloride 108 mmol/L (98-107) H 11/05/18 07:00 Carbon Dioxide 29 mmol/L (21-32) 11/05/18 07:00 Anion Gap 4 MMOL/L (8-16) L 11/05/18 07:00 BUN 14 mg/dL (7-18) 11/05/18 07:00 Creatinine 1.2 mg/dL (0.55-1.3) 11/05/18 07:00 Creat Clearance w eGFR > 60 (>60) 11/05/18 07:00 Random Glucose 88 mg/dL (74-106) 11/05/18 07:00 Calcium 8.3 mg/dL (8.5-10.1) L 11/05/18 07:00 Total Bilirubin 0.2 mg/dL (0.2-1) 11/05/18 07:00 AST 27 U/L (15-37) 11/05/18 07:00 ALT 46 U/L (13-61) 11/05/18 07:00 Alkaline Phosphatase 108 U/L (45-117) 11/05/18 07:00 Total Protein 6.7 g/dl (6.4-8.2) 11/05/18 07:00 Albumin 2.8 g/dl (3.4-5.0) L 11/05/18 07:00 Urine Color Maria L 11/04/18 23:17 Urine Appearance Clear 11/04/18 23:17 Urine pH 5.0 (5.0-8.0) 11/04/18 23:17 Ur Specific [place] 1.025 (1.010-1.035) 11/04/18 23:17 Urine Protein 1+ (NEGATIVE) H 11/04/18 23:17 Urine Glucose (UA) Negative (NEGATIVE) 11/04/18 23:17 Urine Ketones Negative (NEGATIVE) 11/04/18 23:17 Urine Blood Negative (NEGATIVE) 11/04/18 23:17 Urine Nitrite Negative (NEGATIVE) 11/04/18 23:17 Urine Bilirubin Negative (<2.0 mg/dL) 11/04/18 23:17 Urine Urobilinogen 2.0 mg/dL (0.2-1.0) 11/04/18 23:17 Ur Leukocyte Esterase Negative (NEGATIVE) 11/04/18 23:17 Urine WBC (Auto) 2 /hpf (3-5) 11/04/18 23:17 Urine RBC (Auto) <1 /hpf (0-3) 11/04/18 23:17 Ur Epithelial Cells Rare /HPF (FEW) 11/04/18 23:17 Urine Mucus Rare 11/04/18 23:17 RPR Titer Nonreactive (NONREACTIVE) 11/05/18 07:00 lab noted - Treatment Hospital Course: Detox Protocol Followed, Detoxed Safely, Responded well, Discharged Condition Good, Rehab Referral Accepted Patient has Accepted a Rehab Referral to: [facility] - Medication Discharge Medications: Ambulatory Orders Multivit-Min/Iron Fum/Folic AC [Rirwr-Tevzjkx-Nfgksnlo Tablet] 1 each PO DAILY # 30 tablet 06/12/17 Vit D3/Folic Acid/B2/B6/B12 [Folgard Tablet] 1 each PO DAILY #30 tablet Darunavir Ethanolate [Prezista] 800 mg PO DAILY 11/05/18 Elviteg/Cob/Emtri/Tenof Alafen [Genvoya (Non-Formulary)] 1 tab PO DAILY - Diagnosis (1) Opioid dependence with withdrawal Status: Acute (2) HIV (human immunodeficiency virus infection) Status: Chronic Qualifiers: HIV symptom status: asymptomatic Qualified Code(s): Z21 - Asymptomatic human immunodeficiency virus [HIV] infection status (3) Nicotine dependence Status: Acute Qualifiers: Nicotine product type: cigarettes Substance use status: in withdrawal Qualified Code(s): F17.213 - Nicotine dependence, cigarettes, with withdrawal (4) PPD positive Status: Resolved - AMA Did Patient Leave Against Medical Advice: No
== END 2018-11-08 09:20 | disposition home or self-care (01) | DRG 773 ==
LOC: YASAS 13:39 → Y3N 18:43
PROVIDERS: ADMIT Surgery; ATTEND Surgery
PROC: HZ2ZZZZ Detoxification Services for Substance Abuse Treatment (ICD-10-PCS; principal; 2018-11-04)
DX: F11.23 Opioid dependence with withdrawal (principal); F14.20 Cocaine dependence, uncomplicated; F17.213 Nicotine dependence, cigarettes, with withdrawal; F32.9 Major depressive disorder, single episode, unspecified; Z21 Asymptomatic human immunodeficiency virus [HIV] infection status; E78.5 Hyperlipidemia, unspecified; R76.11 Nonspecific reaction to tuberculin skin test without active tuberculosis; Z59.0 Homelessness
CPT/HCPCS: 36415; 80053; 81003; 81015; 85027; 86593; 93005; 93010; J0735

== ENCOUNTER 2019-10-22 15:50 | Inpatient (IN) | payer OTHER ==
--- NOTE | 2019-10-22 19:39 | BHS.RME ---
Substance Use & Tx History - Last Treatment Where was last treatment: Detox CIWA Nausea/Vomitin Muscle Tremors: 3 Anxiety: 3 Agitation: 3 Paroxysmal Sweats: 2 Orientation: 2-Disoriented Date<2 days Tacttile Disturbances: 0-None Auditory Disturbances: 0-None Visual Disturbances: 0-None Headache: 0-None Present CIWA-Ar Total Score: 15
[2019-10-22 20:09] VITALS: BMI 24.8
--- NOTE | 2019-10-22 20:36 | HP ---
CIWA Score Nausea/Vomitin Muscle Tremors: 3 Anxiety: 3 Agitation: 3 Paroxysmal Sweats: 2 Orientation: 2-Disoriented Date<2 days Tacttile Disturbances: 0-None Auditory Disturbances: 0-None Visual Disturbances: 0-None Headache: 0-None Present CIWA-Ar Total Score: 15 - Admission Criteria OASAS Guidelines: Admission for Medically Managed Detox: Requires at least one of the followin. CIWA greater than 12 2. Seizures within the past 24 hours 3. Delirium tremens within the past 24 hours 4. Hallucinations within the past 24 hours 5. Acute intervention needed for co occurring medical disorder 6. Acute intervention needed for co occurring psychiatric disorder 7. Severe withdrawal that cannot be handled at a lower level of care (continued vomiting, continued diarrhea, abnormal vital signs) requiring intravenous medication and/or fluids 8. Admitting History and Physical - Smoking History Smoking history: Current every day smoker Have you smoked in the past 12 months: Yes Aproximately how many cigarettes per day: 10 - Alcohol/Substance Use Hx Alcohol Use: Yes Admission ROS [facility] Chief Complaint: Alcohol withdrawal symptoms, on MMTP Allergies/Adverse Reactions: Allergies Allergy/AdvReac Type Severity Reaction Status Date / Time No Known Allergies Allergy Verified 10/22/19 20:09 History of Present Illness: 59 years old male with a long history of alcohol dependence is seeking admission to detox. Patient's last admission was for the period 11/04/2018-11/08 and he report 7 years of sobriety. He has medical history of HIV+, hyperlipidemia, gonorrhea, syphilis, PPD positive and psych. history of depression. He denies suicidal ideation at this time. He is on methadone 100mg maintenance therapy with [facility]. Dose is yet to be confirmed by the nurse Exam Limitations: No Limitations - Ebola screening Have you traveled outside of the country in the last 21 days: No Have you had contact with anyone from an Ebola affected area: No Do you have a fever: No - Review of Systems Constitutional: Chills, Malaise, Night Sweats, Changes in sleep EENT: reports: Nose Congestion Respiratory: reports: No Symptoms reported Cardiac: reports: No Symptoms Reported GI: reports: Nausea, Poor Appetite, Poor Fluid Intake, Abdominal cramping : reports: No Symptoms Reported Musculoskeletal: reports: Back Pain Integumentary: reports: Dryness, Flushing Neuro: reports: Tremors Endocrine: reports: No Symptoms Reported Hematology: reports: No Symptoms Reported Psychiatric: reports: Mood/Affect Appropiate, Orientated x3, Depressed Other Systems: Reviewed and Negative Patient History - Patient Medical History Hx Anemia: No Hx Asthma: No Hx Chronic Obstructive Pulmonary Disease (COPD): No Hx Cancer: No (Reportedly) Hx Cardiac Disorders: No Hx Congestive Heart Failure: No (Reportedly) Hx Hypertension: No Hx Hypercholesterolemia: Yes (Admits high triglycerides but refuse any medication, handles with diet) Hx Pacemaker: No HX Cerebrovascular Accident: No Hx Seizures: No Hx Dementia: No Hx Diabetes: No Hx Gastrointestinal Disorders: No Hx Liver Disease: No Hx Genitourinary Disorders: No Hx Sexually Transmitted Disorders: Yes (GENORRHEA- SYPHILLIS) Hx Renal Disease (ESRD): No Hx Thyroid Disease: No Hx Human Immunodeficiency Virus (HIV): Yes (Genvoya) Hx Hepatitis C: No Hx Depression: Yes Hx Suicide Attempt: No (Denies suicidal ideation at this time) Hx Bipolar Disorder: No Hx Schizophrenia: No - Patient Surgical History Past Surgical History: Yes Hx Neurologic Surgery: No Hx Cataract Extraction: No Hx Cardiac Surgery: No Hx Lung Surgery: No Hx Abdominal Surgery: No Hx Appendectomy: No Hx Cholecystectomy: No Hx Genitourinary Surgery: No Hx Orthopedic Surgery: No Hx Hysterectomy: No (N/A) Other Surgical History: HEMORRHOID REMOVAL 2007 Anesthesia Reaction: No - PPD History Previous Implant?: Yes (PPD POSITIVE. TREATED WITH INH) Documented Results: Positive w/o proof Implanted On Prior [facility] Admission?: No PPD to be Administered?: No - Reproductive History Patient is a Female of Child Bearing Age (11 -55 yrs old): No (male) - Smoking Cessation Smoking history: Current every day smoker Have you smoked in the past 12 months: Yes Aproximately how many cigarettes per day: 10 Cigars Per Day: 0 Hx Chewing Tobacco Use: No Initiated information on smoking cessation: Yes 'Breaking Loose' booklet given: 10/22/19 - Substance & Tx. History Hx Alcohol Use: Yes Hx Substance Use: Yes Substance Use Type: Alcohol, Cocaine, Heroin, Opiates, Prescribed Hx Substance Use Treatment: Yes ([facility]) - Substances abused Alcohol Substance route: Oral Frequency: Daily Amount used: vodka- 2pts Age of first use: 30 Date of last use: 10/22/19 Heroin Substance route: Injection Frequency: Daily Amount used: 4 bags Age of first use: 15 Date of last use: 10/22/19 Crack Substance route: Smoking Frequency: Daily Amount used: $100 Age of first use: 15 Date of last use: 10/22/19 Admission Physical Exam [facility] - Vital Signs Vital Signs: Vital Signs - 24 hr 10/22/19 20:05 Temperature 98.7 F Pulse Rate 88 Respiratory 18 Rate Blood Pressure 108/60 - Physical General Appearance: Yes: Within Normal Limits, Moderate Distress, Tremorous, Anxious HEENTM: Yes: Within Normal Limits Respiratory: Yes: Lungs Clear, Normal Breath Sounds, No Respiratory Distress Neck: Yes: Within Normal Limits Breast: Yes: Breast Exam Deferred Cardiology: Yes: Regular Rhythm, Regular Rate Abdominal: Yes: Within Normal Limits Genitourinary: Yes: Within Normal Limits Back: Yes: Normal Inspection Musculoskeletal: Yes: Back pain Extremities: Yes: Tremors Neurological: Yes: Within Normal Limits Integumentary: Yes: Warm Lymphatic: Yes: Within Normal Limits - Diagnostic (1) Hyperlipidemia Current Visit: Yes Status: Chronic Qualifiers: Hyperlipidemia type: unspecified Qualified Code(s): E78.5 - Hyperlipidemia , unspecified (2) Nicotine dependence Current Visit: Yes Status: Chronic Qualifiers: Nicotine product type: cigarettes Substance use status: uncomplicated Qualified Code(s): F17.210 - Nicotine dependence, cigarettes, uncomplicated (3) Opioid dependence with withdrawal Current Visit: Yes Status: Acute (4) Cocaine dependence, uncomplicated Current Visit: Yes Status: Chronic (5) HIV (human immunodeficiency virus infection) Current Visit: Yes Status: Chronic Qualifiers: HIV symptom status: asymptomatic Qualified Code(s): Z21 - Asymptomatic human immunodeficiency virus [HIV] infection status (6) PPD positive Current Visit: Yes Status: Chronic Cleared for Admission [facility] - Detox or Rehab [facility] Level of Care: Medically Managed Detox Regimen/Protocol: Librium Donnaeared for Rehab Admission: No Breathalyzer - Breathalyzer Breathalyzer: 0 Urine Drug Screen - Test Device Lot number: [id number] Expiration date: 07/24/21 - Control Is test valid?: Yes - Results Drug screen NEGATIVE: No Urine drug screen results: YANA-Cocaine, FEN-Fentanyl, MOP-Opiates, MTD-Methadone Inpatient Rehab Admission - Rehab Decision to Admit Inpatient rehab admission?: No
[2019-10-22] MEDS ORDERED: NICOTINE POLACRILEX 2 MG GUM BUC PRN (20:47)
[2019-10-22] MEDS ORDERED: chlordiazePOXIDE HCL 25 MG CAPSULE PO PRN (20:47)
[2019-10-22] MEDS ORDERED: ACETAMINOPHEN 325 MG TABLET (FP) PO PRN ×2 (20:47)
[2019-10-22] MEDS ORDERED: MAGNESIUM CITRATE 300 ML BOTTLE PO PRN (20:47)
[2019-10-22] MEDS ORDERED: IBUPROFEN 400 MG TABLET (FP) PO PRN (20:47)
[2019-10-22] MEDS ORDERED: MAGNESIUM HYDROX 2400MG/30ML ORAL SUSPENSION 30 ML CUP PO PRN (20:47)
[2019-10-22] MEDS ORDERED: METHOCARBAMOL 500 MG TABLET PO PRN (20:47)
[2019-10-22] MEDS ORDERED: MENTHOL/PHENOL 1 EACH UD MM PRN (20:47)
[2019-10-22] MEDS ORDERED: BISMUTH SUBSALICYLATE 524 MG/30 ML UD PO PRN (20:47)
[2019-10-22] MEDS ORDERED: MAG HYDROX/AL HYDROX/SIMETH 30 ML UNIT-DOSE CUP PO PRN (20:47)
[2019-10-22] MEDS: THIAMINE HCL 100 MG TABLET (FP) PO SCH (22:13)
[2019-10-22] MEDS: MELATONIN 5 MG TABLETS PO PRN (22:13)
[2019-10-22] MEDS: chlordiazePOXIDE HCL 25 MG CAPSULE PO SCH (22:13)
[2019-10-23] MEDS: chlordiazePOXIDE HCL 25 MG CAPSULE PO SCH ×4 (06:22→22:00)
[2019-10-23] MEDS ORDERED: METHADONE HCL 10 MG TABLET PO SCH (10:15)
[2019-10-23 10:17] LABS: ALBUMIN 3.3 g/dl (3.4-5.0); BILIRUBIN,TOTAL 0.5 mg/dL (0.2-1); BLOOD UREA NITROGEN 17.1 mg/dL (7-18); CALCIUM 8.9 mg/dL (8.5-10.1); CREATININE 1.1 mg/dL (0.55-1.3); POTASSIUM 4.3 mmol/L (3.5-5.1); TOT PROT 7.2 g/dl (6.4-8.2)
[2019-10-23 10:25] LABS: HEMATOCRIT 37.7 % (35.4-49); HEMOGLOBIN 12.6 GM/dL (11.7-16.9); MCH 31.1 pg (25.7-33.7); MCHC 33.5 g/dl (32.0-35.9); MEAN CELL VOLUME 92.8 fl (80-96); MEAN PLT VOLUME 11.5 fl (7.5-11.1); PLATELET COUNT 187 K/MM3 (134-434); RBC 4.06 M/mm3 (4.00-5.60); RDW 15.3 % (11.9-15.9); WHITE BLOOD COUNT 5.6 K/mm3 (4.0-10.0)
[2019-10-23] MEDS: PRENATAL VITAMINS W/ FOLIC ACID TABLET (FP) PO SCH (10:34)
[2019-10-23] MEDS: NICOTINE 14 MG/24 HOURS TOPICAL PATCH TD SCH (10:34)
[2019-10-23] MEDS ORDERED: METHADONE HCL 10 MG TABLET ONE (10:35)
[2019-10-23] MEDS ORDERED: METHADONE HCL 40 MG DISPERSABLE TABLET ONE (10:36)
[2019-10-23] MEDS: METHADONE 80 MG, METHADONE 20 MG PO SCH (10:36)
--- NOTE | 2019-10-23 11:07 | CONSULT ---
[facility] Psychiatric Consult - Data Date of interview: 10/23/19 Admission source: [facility] Identifying data: Met with the patient. Mr Edwards declines psychiatric evaluation. " I don't need to talk to psychiatrists here. I have already my psychiatrist in the streets. Thank you very much." Nursing staff is made aware.
--- NOTE | 2019-10-23 11:20 | PN ---
S CIWA - CIWA Score Nausea/Vomitin-No Nausea/No Vomiting Muscle Tremors: 2 Anxiety: 3 Agitation: 0-Normal Activity Paroxysmal Sweats: 3 Orientation: 0-Oriented Tacttile Disturbances: 0-None Auditory Disturbances: 0-None Visual Disturbances: 0-None Headache: 2-Mild CIWA-Ar Total Score: 10 S Progress Note (SOAP) Subjective: c/o sweats, anxiety, and headache. Objective: 10/23/19 11:19 Vital Signs 10/23/19 10/23/19 10/23/19 03:30 07:05 08:52 Temperature 97 F L 97.1 F L Pulse Rate 72 70 Respiratory 18 18 18 Rate Blood Pressure 136/77 142/75 Lab Results WBC 5.6 K/mm3 (4.0-10.0) 10/23/19 07:20 RBC 4.06 M/mm3 (4.00-5.60) 10/23/19 07:20 Hgb 12.6 GM/dL (11.7-16.9) 10/23/19 07:20 Hct 37.7 % (35.4-49) 10/23/19 07:20 MCV 92.8 fl (80-96) 10/23/19 07:20 MCHC 33.5 g/dl (32.0-35.9) 10/23/19 07:20 RDW 15.3 % (11.9-15.9) 10/23/19 07:20 Plt Count 187 K/MM3 (134-434) 10/23/19 07:20 Sodium 140 mmol/L (136-145) 10/23/19 07:20 Potassium 4.3 mmol/L (3.5-5.1) 10/23/19 07:20 Chloride 109 mmol/L (98-107) H 10/23/19 07:20 Carbon Dioxide 27 mmol/L (21-32) 10/23/19 07:20 Anion Gap 5 MMOL/L (8-16) L 10/23/19 07:20 BUN 17.1 mg/dL (7-18) 10/23/19 07:20 Creatinine 1.1 mg/dL (0.55-1.3) 10/23/19 07:20 Random Glucose 117 mg/dL (74-106) H 10/23/19 07:20 Calcium 8.9 mg/dL (8.5-10.1) 10/23/19 07:20 Labs noted. Assessment: 10/23/19 11:19 AOX3, in no respiratory distress. Full ROM, ambulating in the unit. Withdrawal symptoms. Plan: continue detox.
[2019-10-23] MEDS: PATIENT'S OWN MEDICATION (NON-FORMULARY) (Elviteg/Cob/Emtri/Tenof Alafen 1 TAB) PO SCH (12:39)
--- NOTE | 2019-10-23 13:11 | EKG ---
Test Reason : Blood Pressure : / mmHG Vent. Rate : 071 BPM Atrial Rate : 071 BPM P-R Int : 164 ms QRS Dur : 086 ms QT Int : 402 ms P-R-T Axes : 067 042 034 degrees QTc Int : 436 ms NORMAL SINUS RHYTHM MODERATE VOLTAGE CRITERIA FOR LVH, MAY BE NORMAL VARIANT WHEN COMPARED WITH ECG OF 04-NOV-2018 18:34, NO SIGNIFICANT CHANGE WAS FOUND Confirmed by MIKE HANSEN MD ([id number]) on 10/23/2019 1:11:27 PM Referred By: Confirmed By:MIKE HANSEN MD
[2019-10-23] MEDS: THIAMINE HCL 100 MG TABLET (FP) PO SCH (22:00)
[2019-10-24] MEDS ORDERED: METHADONE HCL 10 MG TABLET ONE (04:08)
[2019-10-24] MEDS ORDERED: METHADONE HCL 40 MG DISPERSABLE TABLET ONE (04:08)
[2019-10-24] MEDS: METHADONE 80 MG, METHADONE 20 MG PO SCH (05:51)
[2019-10-24] MEDS: chlordiazePOXIDE HCL 25 MG CAPSULE PO SCH ×4 (05:51→22:08)
[2019-10-24] MEDS: PRENATAL VITAMINS W/ FOLIC ACID TABLET (FP) PO SCH (10:09)
[2019-10-24] MEDS: NICOTINE 14 MG/24 HOURS TOPICAL PATCH TD SCH (10:10)
[2019-10-24] MEDS: PATIENT'S OWN MEDICATION (NON-FORMULARY) (Elviteg/Cob/Emtri/Tenof Alafen 1 TAB) PO SCH (10:10)
--- NOTE | 2019-10-24 12:38 | PN ---
[facility] CIWA - CIWA Score Nausea/Vomitin-Mild Nausea/No Vomiting Muscle Tremors: 3 Anxiety: 3 Agitation: 0-Normal Activity Paroxysmal Sweats: 1-Minimal Palms Moist Orientation: 0-Oriented Tacttile Disturbances: 0-None Auditory Disturbances: 0-None Visual Disturbances: 1-Very Mild Sensitivity Headache: 0-None Present CIWA-Ar Total Score: 9 S Progress Note (SOAP) Subjective: 59 years old male admitted on 10/22/19 for alcohol withdrawal sx management treating with librum detox regiment received methadone 100 mg po today feeling better less tremor Objective: 10/24/19 12:39 Vital Signs Temperature 97.8 F 10/24/19 10:00 Pulse Rate 74 10/24/19 10:00 Respiratory Rate 16 10/24/19 10:00 Blood Pressure 123/74 10/24/19 10:00 O2 Sat by Pulse Oximetry (%) Laboratory Last Values WBC 5.6 K/mm3 (4.0-10.0) 10/23/19 07:20 RBC 4.06 M/mm3 (4.00-5.60) 10/23/19 07:20 Hgb 12.6 GM/dL (11.7-16.9) 10/23/19 07:20 Hct 37.7 % (35.4-49) 10/23/19 07:20 MCV 92.8 fl (80-96) 10/23/19 07:20 MCH 31.1 pg (25.7-33.7) 10/23/19 07:20 MCHC 33.5 g/dl (32.0-35.9) 10/23/19 07:20 RDW 15.3 % (11.9-15.9) 10/23/19 07:20 Plt Count 187 K/MM3 (134-434) 10/23/19 07:20 MPV 11.5 fl (7.5-11.1) H D 10/23/19 07:20 Sodium 140 mmol/L (136-145) 10/23/19 07:20 Potassium 4.3 mmol/L (3.5-5.1) 10/23/19 07:20 Chloride 109 mmol/L (98-107) H 10/23/19 07:20 Carbon Dioxide 27 mmol/L (21-32) 10/23/19 07:20 Anion Gap 5 MMOL/L (8-16) L 10/23/19 07:20 BUN 17.1 mg/dL (7-18) 10/23/19 07:20 Creatinine 1.1 mg/dL (0.55-1.3) 10/23/19 07:20 Est GFR (CKD-EPI)AfAm 84.71 10/23/19 07:20 Est GFR (CKD-EPI)NonAf 73.09 10/23/19 07:20 Random Glucose 117 mg/dL (74-106) H 10/23/19 07:20 Calcium 8.9 mg/dL (8.5-10.1) 10/23/19 07:20 Total Bilirubin 0.5 mg/dL (0.2-1) 10/23/19 07:20 AST 23 U/L (15-37) 10/23/19 07:20 ALT 24 U/L (13-61) 10/23/19 07:20 Alkaline Phosphatase 99 U/L (45-117) 10/23/19 07:20 Total Protein 7.2 g/dl (6.4-8.2) 10/23/19 07:20 Albumin 3.3 g/dl (3.4-5.0) L 10/23/19 07:20 RPR Titer Nonreactive (NONREACTIVE) 10/23/19 07:20 lab noted Assessment: 10/24/19 12:39 alcohol withdrawal Plan: librium regiment
[2019-10-24] MEDS: THIAMINE HCL 100 MG TABLET (FP) PO SCH (22:08)
[2019-10-24] MEDS: MELATONIN 5 MG TABLETS PO PRN (22:08)
[2019-10-25] MEDS ORDERED: chlordiazePOXIDE HCL 10 MG CAPSULE PO PRN
[2019-10-25] MEDS ORDERED: METHADONE HCL 40 MG DISPERSABLE TABLET ONE (04:56)
[2019-10-25] MEDS ORDERED: METHADONE HCL 10 MG TABLET ONE (04:56)
[2019-10-25] MEDS: METHADONE 80 MG, METHADONE 20 MG PO SCH (05:20)
[2019-10-25] MEDS: chlordiazePOXIDE HCL 10 MG CAPSULE PO SCH ×4 (05:20→22:15)
[2019-10-25] MEDS: PRENATAL VITAMINS W/ FOLIC ACID TABLET (FP) PO SCH (10:09)
[2019-10-25] MEDS: NICOTINE 14 MG/24 HOURS TOPICAL PATCH TD SCH (10:10)
[2019-10-25] MEDS: PATIENT'S OWN MEDICATION (NON-FORMULARY) (Elviteg/Cob/Emtri/Tenof Alafen 1 TAB) PO SCH (10:10)
--- NOTE | 2019-10-25 10:15 | PN ---
[facility] CIWA - CIWA Score Nausea/Vomitin-No Nausea/No Vomiting Muscle Tremors: 1-None Visible, but [place] Anxiety: 0-No Anxiety, at Ease Agitation: 0-Normal Activity Paroxysmal Sweats: 1-Minimal Palms Moist Orientation: 0-Oriented Tacttile Disturbances: 0-None Auditory Disturbances: 0-None Visual Disturbances: 1-Very Mild Sensitivity Headache: 0-None Present CIWA-Ar Total Score: 3 S Progress Note (SOAP) Subjective: 59 years old male admitted on 10/22/19 for alcohol withdrawal sx management treting with librium detox regiment taking methadone 100mg po daily feeling better today requests to be discharged tomorrow 10/26/19 less tremor mild anxiety encourage the patient to attend behavior and psychosocial therapies groups and metings Objective: 10/25/19 10:16 Vital Signs Temperature 97.9 F 10/25/19 08:34 Pulse Rate 76 10/25/19 08:34 Respiratory Rate 18 10/25/19 08:34 Blood Pressure 116/76 10/25/19 08:34 O2 Sat by Pulse Oximetry (%) Laboratory Last Values WBC 5.6 K/mm3 (4.0-10.0) 10/23/19 07:20 RBC 4.06 M/mm3 (4.00-5.60) 10/23/19 07:20 Hgb 12.6 GM/dL (11.7-16.9) 10/23/19 07:20 Hct 37.7 % (35.4-49) 10/23/19 07:20 MCV 92.8 fl (80-96) 10/23/19 07:20 MCH 31.1 pg (25.7-33.7) 10/23/19 07:20 MCHC 33.5 g/dl (32.0-35.9) 10/23/19 07:20 RDW 15.3 % (11.9-15.9) 10/23/19 07:20 Plt Count 187 K/MM3 (134-434) 10/23/19 07:20 MPV 11.5 fl (7.5-11.1) H D 10/23/19 07:20 Sodium 140 mmol/L (136-145) 10/23/19 07:20 Potassium 4.3 mmol/L (3.5-5.1) 10/23/19 07:20 Chloride 109 mmol/L (98-107) H 10/23/19 07:20 Carbon Dioxide 27 mmol/L (21-32) 10/23/19 07:20 Anion Gap 5 MMOL/L (8-16) L 10/23/19 07:20 BUN 17.1 mg/dL (7-18) 10/23/19 07:20 Creatinine 1.1 mg/dL (0.55-1.3) 10/23/19 07:20 Est GFR (CKD-EPI)AfAm 84.71 10/23/19 07:20 Est GFR (CKD-EPI)NonAf 73.09 10/23/19 07:20 Random Glucose 117 mg/dL (74-106) H 10/23/19 07:20 Calcium 8.9 mg/dL (8.5-10.1) 10/23/19 07:20 Total Bilirubin 0.5 mg/dL (0.2-1) 10/23/19 07:20 AST 23 U/L (15-37) 10/23/19 07:20 ALT 24 U/L (13-61) 10/23/19 07:20 Alkaline Phosphatase 99 U/L (45-117) 10/23/19 07:20 Total Protein 7.2 g/dl (6.4-8.2) 10/23/19 07:20 Albumin 3.3 g/dl (3.4-5.0) L 10/23/19 07:20 RPR Titer Nonreactive (NONREACTIVE) 10/23/19 07:20 lab noted Assessment: 10/25/19 10:16 alcohol withdrawal Plan: librium regiment
[2019-10-25] MEDS: MELATONIN 5 MG TABLETS PO PRN (22:15)
[2019-10-25] MEDS: THIAMINE HCL 100 MG TABLET (FP) PO SCH (22:15)
[2019-10-26] MEDS ORDERED: chlordiazePOXIDE HCL 10 MG CAPSULE PO SCH (05:00)
[2019-10-26] MEDS ORDERED: METHADONE HCL 10 MG TABLET ONE (05:31)
[2019-10-26] MEDS ORDERED: METHADONE HCL 40 MG DISPERSABLE TABLET ONE (05:31)
[2019-10-26] MEDS: METHADONE 80 MG, METHADONE 20 MG PO SCH (05:32)
[2019-10-26 06:00] VITALS: BP 111/70; PULSE 72; TEMP 98.4
--- NOTE | 2019-10-26 11:42 | DS ---
[facility] Detox Discharge Summary Admission Date: 10/22/19 Discharge Date: 10/26/19 - History Present History: Alcohol Dependence Additional Comments: 59 years old male admitted on 10/22/19 for alcohol withdrawal sx management treated wtih librium detox regiment feeling better today prefers to leave the detox unit today is alert oriented x 3 speech clearly coherently cardiac [id number] regular rate rhythm respiratory clear lungs bilaterally on auscultation extremities full range of motion Pertinent Past History: time for discharge 38 minutes - Physical Exam Results Vital Signs: Vital Signs Temperature 98.4 F 10/26/19 05:59 Pulse Rate 72 10/26/19 05:59 Respiratory Rate 18 10/26/19 05:59 Blood Pressure 111/70 10/26/19 05:59 O2 Sat by Pulse Oximetry (%) Pertinent Admission Physical Exam Findings: alcohol withdrawal Laboratory Last Values WBC 5.6 K/mm3 (4.0-10.0) 10/23/19 07:20 RBC 4.06 M/mm3 (4.00-5.60) 10/23/19 07:20 Hgb 12.6 GM/dL (11.7-16.9) 10/23/19 07:20 Hct 37.7 % (35.4-49) 10/23/19 07:20 MCV 92.8 fl (80-96) 10/23/19 07:20 MCH 31.1 pg (25.7-33.7) 10/23/19 07:20 MCHC 33.5 g/dl (32.0-35.9) 10/23/19 07:20 RDW 15.3 % (11.9-15.9) 10/23/19 07:20 Plt Count 187 K/MM3 (134-434) 10/23/19 07:20 MPV 11.5 fl (7.5-11.1) H D 10/23/19 07:20 Sodium 140 mmol/L (136-145) 10/23/19 07:20 Potassium 4.3 mmol/L (3.5-5.1) 10/23/19 07:20 Chloride 109 mmol/L (98-107) H 10/23/19 07:20 Carbon Dioxide 27 mmol/L (21-32) 10/23/19 07:20 Anion Gap 5 MMOL/L (8-16) L 10/23/19 07:20 BUN 17.1 mg/dL (7-18) 10/23/19 07:20 Creatinine 1.1 mg/dL (0.55-1.3) 10/23/19 07:20 Est GFR (CKD-EPI)AfAm 84.71 10/23/19 07:20 Est GFR (CKD-EPI)NonAf 73.09 10/23/19 07:20 Random Glucose 117 mg/dL (74-106) H 10/23/19 07:20 Calcium 8.9 mg/dL (8.5-10.1) 10/23/19 07:20 Total Bilirubin 0.5 mg/dL (0.2-1) 10/23/19 07:20 AST 23 U/L (15-37) 10/23/19 07:20 ALT 24 U/L (13-61) 10/23/19 07:20 Alkaline Phosphatase 99 U/L (45-117) 10/23/19 07:20 Total Protein 7.2 g/dl (6.4-8.2) 10/23/19 07:20 Albumin 3.3 g/dl (3.4-5.0) L 10/23/19 07:20 RPR Titer Nonreactive (NONREACTIVE) 10/23/19 07:20 lab noted - Treatment Hospital Course: Detox Protocol Followed, Detoxed Safely, Responded well, Discharged Condition Good, Rehab Referral Accepted Patient has Accepted a Rehab Referral to: [facility] - Medication Discharge Medications: Ambulatory Orders Elviteg/Cob/Emtri/Tenof Alafen [Genvoya (Non-Formulary)] 1 tab PO DAILY Bupropion HCl [Wellbutrin Sr] 150 mg PO DAILY 10/22/19 - Diagnosis (1) Alcohol dependence, uncomplicated Status: Acute (2) HIV (human immunodeficiency virus infection) Status: Chronic Qualifiers: HIV symptom status: asymptomatic Qualified Code(s): Z21 - Asymptomatic human immunodeficiency virus [HIV] infection status (3) Nicotine dependence Status: Acute Qualifiers: Nicotine product type: cigarettes Substance use status: in withdrawal Qualified Code(s): F17.213 - Nicotine dependence, cigarettes, with withdrawal (4) PPD positive Status: Resolved (5) Substance induced mood disorder Status: Suspected - AMA Did Patient Leave Against Medical Advice: No CIWA Score - CIWA Score Nausea/Vomitin-No Nausea/No Vomiting Muscle Tremors: 1-None Visible, but [place] Anxiety: 0-No Anxiety, at Ease Agitation: 0-Normal Activity Paroxysmal Sweats: No Perspiration Orientation: 0-Oriented Tacttile Disturbances: 0-None Auditory Disturbances: 7Continuous Hallucination Visual Disturbances: 1-Very Mild Sensitivity Headache: 0-None Present CIWA-Ar Total Score: 9
[2019-10-27] MEDS ORDERED: chlordiazePOXIDE HCL 10 MG CAPSULE PO ONE (05:00)
== END 2019-10-26 09:05 | disposition home or self-care (01) | DRG 773 ==
LOC: YASAS 15:50 → Y3N 20:08
PROVIDERS: ADMIT Allergy & Immunology; ATTEND Allergy & Immunology
PROC: HZ2ZZZZ Detoxification Services for Substance Abuse Treatment (ICD-10-PCS; principal; 2019-10-22)
DX: F10.230 Alcohol dependence with withdrawal, uncomplicated (principal); F11.23 Opioid dependence with withdrawal; F14.20 Cocaine dependence, uncomplicated; F17.210 Nicotine dependence, cigarettes, uncomplicated; F19.24 Other psychoactive substance dependence with psychoactive substance-induced mood disorder; Z21 Asymptomatic human immunodeficiency virus [HIV] infection status; E78.5 Hyperlipidemia, unspecified; R76.11 Nonspecific reaction to tuberculin skin test without active tuberculosis; Z86.19 Personal history of other infectious and parasitic diseases
CPT/HCPCS: 36415; 71046-TC-FY; 80053; 85027; 86593; 93005; 93010

== ENCOUNTER 2022-08-10 10:17 | Inpatient (IN) | payer OTHER ==
[2022-08-10 11:30] VITALS: BMI 22.6
[2022-08-10] MEDS ORDERED: MAG HYDROX/AL HYDROX/SIMETH 30 ML UNIT-DOSE CUP PO PRN (14:20)
[2022-08-10] MEDS ORDERED: NALOXONE HCL (KLOXXADO) 8 MG SPRAY NS PRN (14:20)
[2022-08-10] MEDS ORDERED: ACETAMINOPHEN 325 MG TABLET (FP) PO PRN ×2 (14:20)
[2022-08-10] MEDS ORDERED: DICYCLOMINE HCL 10 MG CAPSULE PO PRN (14:20)
[2022-08-10] MEDS ORDERED: METHOCARBAMOL 500 MG TABLET PO PRN (14:20)
[2022-08-10] MEDS ORDERED: IBUPROFEN 600 MG TABLET (FP) PO PRN (14:20)
[2022-08-10] MEDS ORDERED: MAGNESIUM HYDROX 2400MG/30ML ORAL SUSPENSION 30 ML CUP PO PRN (14:20)
[2022-08-10] MEDS ORDERED: BENZOCAINE/MENTHOL (CHLORASEPTIC ) LOZENGE MM PRN (14:20)
[2022-08-10] MEDS ORDERED: IBUPROFEN 400 MG TABLET (FP) PO PRN (14:20)
[2022-08-10] MEDS ORDERED: LOPERAMIDE HCL 2 MG CAPSULE PO PRN (14:20)
[2022-08-10] MEDS ORDERED: POLYETHYLENE GLYCOL (HEALTHYLAX) 3350 17 GM PACKET PO PRN (14:20)
[2022-08-10] MEDS ORDERED: ONDANSETRON *ODT* 4 MG TABLET SL PRN (14:20)
[2022-08-10] MEDS ORDERED: BISMUTH SUBSALICYLATE 524 MG/30 ML PO PRN (14:20)
[2022-08-10] MEDS ORDERED: NICOTINE 10 MG CARTRIDGE (INHALER) IH PRN (14:20)
[2022-08-10] MEDS: diazePAM 5 MG TABLET PO PRN (15:17)
[2022-08-10] MEDS: hydrOXYzine PAMOATE 25 MG CAPSULE (FP) PO PRN (15:18)
[2022-08-10] MEDS ORDERED: diazePAM 5 MG TABLET ONE (15:23)
[2022-08-10] MEDS ORDERED: hydrOXYzine PAMOATE 25 MG CAPSULE (FP) PO ONE (15:24)
[2022-08-10] MEDS: ELVITEG/COB/EMTRI/TENOF (GENVOYA) TABLET (NF) PO SCH (15:26)
[2022-08-10] MEDS ORDERED: methaDONE HCL 10 MG TABLET PO ONE (15:45)
[2022-08-10] MEDS: diazePAM 5 MG TABLET PO SCH ×2 (17:51→22:39)
[2022-08-10] MEDS: THIAMINE HCL 100 MG TABLET (FP) PO SCH (22:40)
[2022-08-10] MEDS: MELATONIN 5 MG TABLETS PO SCH (22:41)
[2022-08-11] MEDS: diazePAM 5 MG TABLET PO SCH ×4 (05:37→22:01)
[2022-08-11] MEDS ORDERED: methaDONE HCL 10 MG TABLET PO ONE (06:00)
[2022-08-11] MEDS: PRENATAL VITAMINS W/ FOLIC ACID TABLET (FP) PO SCH (10:16)
[2022-08-11] MEDS: ELVITEG/COB/EMTRI/TENOF (GENVOYA) TABLET (NF) PO SCH (10:16)
[2022-08-11 12:30] LABS: HEMATOCRIT 40.1 % (35.4-49); HEMOGLOBIN 13.3 GM/dL (11.7-16.9); MCH 30.1 pg (25.7-33.7); MCHC 33.2 g/dl (32.0-35.9); MEAN CELL VOLUME 90.6 fl (80-96); MEAN PLT VOLUME 10.4 fl (7.5-11.1); PLATELET COUNT 255 10^3/uL (134-434); RBC 4.42 M/mm3 (4.00-5.60); RDW 15.8 % (11.9-15.9); WHITE BLOOD COUNT 5.6 K/mm3 (4.0-10.0)
[2022-08-11 12:45] LABS: CALCIUM 9.3 mg/dL (8.5-10.1)
[2022-08-11 12:46] LABS: ALBUMIN 3.3 g/dl (3.4-5.0)
[2022-08-11 12:49] LABS: CREATININE 1.2 mg/dL (0.55-1.3)
[2022-08-11 12:50] LABS: BILIRUBIN,TOTAL 0.4 mg/dL (0.2-1); TOT PROT 7.4 g/dl (6.4-8.2)
[2022-08-11] MEDS: THIAMINE HCL 100 MG TABLET (FP) PO SCH (22:01)
[2022-08-11] MEDS: MELATONIN 5 MG TABLETS PO SCH (22:02)
[2022-08-12] MEDS: diazePAM 5 MG TABLET PO SCH ×3 (05:40→21:39)
[2022-08-12] MEDS: hydrOXYzine PAMOATE 25 MG CAPSULE (FP) PO PRN (05:40)
[2022-08-12] MEDS ORDERED: methaDONE HCL 10 MG TABLET PO ONE ×2 (09:15→09:26)
[2022-08-12] MEDS: ELVITEG/COB/EMTRI/TENOF (GENVOYA) TABLET (NF) PO SCH (10:14)
[2022-08-12] MEDS: PRENATAL VITAMINS W/ FOLIC ACID TABLET (FP) PO SCH (10:14)
[2022-08-12] MEDS ORDERED: methaDONE 40 MG, methaDONE 10 MG PO ONE (10:15)
[2022-08-12] MEDS: THIAMINE HCL 100 MG TABLET (FP) PO SCH (21:40)
[2022-08-12] MEDS: MELATONIN 5 MG TABLETS PO SCH (21:40)
[2022-08-13] MEDS: diazePAM 5 MG TABLET PO PRN (03:04)
[2022-08-13] MEDS: hydrOXYzine PAMOATE 25 MG CAPSULE (FP) PO PRN (03:04)
[2022-08-13] MEDS ORDERED: diazePAM 5 MG TABLET PO SCH (06:00)
[2022-08-13] MEDS ORDERED: methaDONE HCL 10 MG TABLET PO SCH ×2 (06:00)
[2022-08-13] MEDS ORDERED: methaDONE 40 MG, methaDONE 10 MG PO SCH (06:00)
[2022-08-13 06:51] VITALS: BP 135/72; PULSE 69; RESP 16; TEMP 97.6
[2022-08-13] MEDS: ELVITEG/COB/EMTRI/TENOF (GENVOYA) TABLET (NF) PO SCH (09:37)
[2022-08-13] MEDS: PRENATAL VITAMINS W/ FOLIC ACID TABLET (FP) PO SCH (09:37)
[2022-08-14] MEDS ORDERED: diazePAM 5 MG TABLET PO ONE (06:00)
== END 2022-08-13 09:10 | disposition home or self-care (01) | DRG 773 ==
LOC: YASAS 10:17 → SUATTDRO 10:17 → Y6N 15:02
PROVIDERS: ADMIT Allergy & Immunology; ATTEND Surgery
PROC: HZ2ZZZZ Detoxification Services for Substance Abuse Treatment (ICD-10-PCS; principal; 2022-08-10)
DX: F11.23 Opioid dependence with withdrawal (principal); F11.220 Opioid dependence with intoxication, uncomplicated; F10.230 Alcohol dependence with withdrawal, uncomplicated; F14.20 Cocaine dependence, uncomplicated; F17.210 Nicotine dependence, cigarettes, uncomplicated; Z21 Asymptomatic human immunodeficiency virus [HIV] infection status; R03.0 Elevated blood-pressure reading, without diagnosis of hypertension; E78.5 Hyperlipidemia, unspecified; G40.909 Epilepsy, unspecified, not intractable, without status epilepticus; Z56.0 Unemployment, unspecified
CPT/HCPCS: 36415; 80053; 85027; 86780; C9803-CS; U0003; U0005

== ENCOUNTER 2023-02-11 12:53 | Inpatient (IN) | payer OTHER ==
[2023-02-11 13:36] VITALS: BMI 21.4
[2023-02-11] MEDS ORDERED: MAGNESIUM HYDROX 2400MG/30ML ORAL SUSPENSION 30 ML CUP PO PRN (15:29)
[2023-02-11] MEDS ORDERED: ONDANSETRON *ODT* 4 MG TABLET SL PRN (15:29)
[2023-02-11] MEDS ORDERED: NALOXONE HCL (KLOXXADO) 8 MG SPRAY NS PRN (15:29)
[2023-02-11] MEDS ORDERED: IBUPROFEN 400 MG TABLET (FP) PO PRN (15:29)
[2023-02-11] MEDS ORDERED: NICOTINE 10 MG CARTRIDGE (INHALER) IH PRN (15:29)
[2023-02-11] MEDS ORDERED: BENZONATATE 200 MG CAPSULE PO PRN (15:29)
[2023-02-11] MEDS ORDERED: ACETAMINOPHEN 325 MG TABLET (FP) PO PRN (15:29)
[2023-02-11] MEDS ORDERED: LOPERAMIDE HCL 2 MG CAPSULE PO PRN (15:29)
[2023-02-11] MEDS ORDERED: guaiFENesin 600 MG TABLET.ER (FP) PO PRN (15:29)
[2023-02-11] MEDS ORDERED: NALOXONE HCL 0.4 MG/ML VIAL IM PRN (15:29)
[2023-02-11] MEDS ORDERED: BENZOCAINE/MENTHOL (CHLORASEPTIC ) LOZENGE MM PRN (15:29)
[2023-02-11] MEDS ORDERED: POLYETHYLENE GLYCOL (HEALTHYLAX) 3350 17 GM PACKET PO PRN (15:29)
[2023-02-11] MEDS ORDERED: AMMONIUM LACTATE 12% LOTION 225 GM BOTTLE TP PRN (15:29)
[2023-02-11] MEDS ORDERED: COLLOIDAL OATMEAL 1 BAR EACH TP PRN (15:29)
[2023-02-11] MEDS ORDERED: NICOTINE POLACRILEX 2 MG GUM BUC PRN (15:29)
[2023-02-11] MEDS ORDERED: IBUPROFEN 600 MG TABLET (FP) PO PRN (15:29)
[2023-02-11] MEDS ORDERED: MAG HYDROX/AL HYDROX/SIMETH 30 ML UNIT-DOSE CUP PO PRN (15:29)
[2023-02-11] MEDS ORDERED: BISMUTH SUBSALICYLATE 524 MG/30 ML PO PRN (15:29)
[2023-02-11] MEDS ORDERED: DICYCLOMINE HCL 10 MG CAPSULE PO PRN (15:29)
[2023-02-11] MEDS ORDERED: ELVITEG/COB/EMTRI/TENOF (GENVOYA) TABLET PO SCH (15:45)
[2023-02-11] MEDS: ELVITEG/COB/EMTRI/TENOF (GENVOYA) TABLET PO SCH (17:45)
[2023-02-11] MEDS: hydrOXYzine PAMOATE 25 MG CAPSULE (FP) PO PRN ×2 (19:56→22:25)
[2023-02-11] MEDS: METHOCARBAMOL 500 MG TABLET PO PRN (19:56)
[2023-02-11] MEDS ORDERED: methaDONE HCL 10 MG TABLET (FOR DETOX USE ONLY) PO ONE (20:13)
[2023-02-11] MEDS ORDERED: cloNIDine HCL 0.1 MG TABLET PO PRN (20:13)
[2023-02-11] MEDS: THIAMINE HCL 100 MG TABLET (FP) PO SCH (22:24)
[2023-02-11] MEDS: MELATONIN 5 MG TABLETS PO SCH (22:24)
[2023-02-11] MEDS: diazePAM 5 MG TABLET PO SCH (22:26)
[2023-02-12] MEDS: diazePAM 5 MG TABLET PO SCH ×4 (06:00→22:21)
[2023-02-12] MEDS: ELVITEG/COB/EMTRI/TENOF (GENVOYA) TABLET PO SCH (07:13)
[2023-02-12] MEDS: PRENATAL VITAMINS W/ FOLIC ACID TABLET (FP) PO SCH (10:12)
[2023-02-12 11:37] LABS: HEMATOCRIT 38.1 % (35.4-49); HEMOGLOBIN 12.5 GM/dL (11.7-16.9); MCH 28.5 pg (25.7-33.7); MCHC 32.8 g/dl (32.0-35.9); MEAN CELL VOLUME 87.1 fl (80-96); MEAN PLT VOLUME 10.1 fl (7.5-11.1); PLATELET COUNT 217 10^3/uL (134-434); RBC 4.38 M/mm3 (4.00-5.60); WHITE BLOOD COUNT 5.2 K/mm3 (4.0-10.0)
[2023-02-12 11:45] LABS: ALBUMIN 2.8 g/dl (3.4-5.0); BLOOD UREA NITROGEN 13.4 mg/dL (7-18); CALCIUM 9.4 mg/dL (8.5-10.1)
[2023-02-12 11:48] LABS: CREATININE 0.9 mg/dL (0.55-1.3)
[2023-02-12 11:50] LABS: BILIRUBIN,TOTAL 0.6 mg/dL (0.2-1)
[2023-02-12 11:53] LABS: TOT PROT 6.6 g/dl (6.4-8.2)
[2023-02-12] MEDS: THIAMINE HCL 100 MG TABLET (FP) PO SCH (22:20)
[2023-02-12] MEDS: MELATONIN 5 MG TABLETS PO SCH (22:20)
[2023-02-12] MEDS: METHOCARBAMOL 500 MG TABLET PO PRN (22:24)
[2023-02-12] MEDS: hydrOXYzine PAMOATE 25 MG CAPSULE (FP) PO PRN (22:24)
[2023-02-13] MEDS: diazePAM 5 MG TABLET PO SCH ×3 (06:04→22:12)
[2023-02-13] MEDS: ELVITEG/COB/EMTRI/TENOF (GENVOYA) TABLET PO SCH (07:19)
[2023-02-13] MEDS: PRENATAL VITAMINS W/ FOLIC ACID TABLET (FP) PO SCH (09:49)
[2023-02-13] MEDS ORDERED: methaDONE HCL 10 MG TABLET (FOR DETOX USE ONLY) PO ONE (10:00)
[2023-02-13] MEDS: diazePAM 5 MG TABLET PO PRN (19:52)
[2023-02-13] MEDS: MELATONIN 5 MG TABLETS PO SCH (22:12)
[2023-02-13] MEDS: THIAMINE HCL 100 MG TABLET (FP) PO SCH (22:12)
[2023-02-14] MEDS: diazePAM 5 MG TABLET PO SCH ×2 (05:17→17:53)
[2023-02-14] MEDS: ELVITEG/COB/EMTRI/TENOF (GENVOYA) TABLET PO SCH (07:45)
[2023-02-14] MEDS: PRENATAL VITAMINS W/ FOLIC ACID TABLET (FP) PO SCH (09:42)
[2023-02-14] MEDS: diazePAM 5 MG TABLET PO PRN ×2 (09:42→15:46)
[2023-02-14] MEDS: METHOCARBAMOL 500 MG TABLET PO PRN (09:43)
[2023-02-14] MEDS: THIAMINE HCL 100 MG TABLET (FP) PO SCH (22:27)
[2023-02-14] MEDS: MELATONIN 5 MG TABLETS PO SCH (22:27)
[2023-02-14] MEDS: hydrOXYzine PAMOATE 25 MG CAPSULE (FP) PO PRN (22:28)
[2023-02-15] MEDS: METHOCARBAMOL 500 MG TABLET PO PRN ×2 (02:58→12:50)
[2023-02-15] MEDS ORDERED: diazePAM 5 MG TABLET PO ONE (06:00)
[2023-02-15] MEDS: ELVITEG/COB/EMTRI/TENOF (GENVOYA) TABLET PO SCH (07:02)
[2023-02-15 09:20] VITALS: RESP 16; TEMP 97.7
[2023-02-15] MEDS ORDERED: methaDONE HCL 10 MG TABLET (FOR DETOX USE ONLY) PO ONE (10:00)
[2023-02-15] MEDS: PRENATAL VITAMINS W/ FOLIC ACID TABLET (FP) PO SCH (10:32)
[2023-02-15] MEDS: hydrOXYzine PAMOATE 25 MG CAPSULE (FP) PO PRN (10:33)
[2023-02-15 13:29] VITALS: BP 150/88; PULSE 80
== END 2023-02-15 13:52 | disposition home or self-care (01) | DRG 773 ==
LOC: YASAS 12:53 → Y3N 15:31
PROVIDERS: ADMIT Allergy & Immunology; ATTEND Surgery
PROC: HZ2ZZZZ Detoxification Services for Substance Abuse Treatment (ICD-10-PCS; principal; 2023-02-11)
DX: F11.23 Opioid dependence with withdrawal (principal); F13.20 Sedative, hypnotic or anxiolytic dependence, uncomplicated; F17.210 Nicotine dependence, cigarettes, uncomplicated; F31.9 Bipolar disorder, unspecified; Z21 Asymptomatic human immunodeficiency virus [HIV] infection status; E78.5 Hyperlipidemia, unspecified; M54.50 Low back pain, unspecified; G89.29 Other chronic pain
CPT/HCPCS: 36415; 80053; 85027; 86780; 87635; Q0162